=== PATIENT | male | born 1940 | race Caucasian/White ===

== ENCOUNTER 2016-09-13 07:45 | Inpatient (IN) | payer MEDICARE ==
[2016-09-13] VITALS (12 sets, daily range): BP systolic 113–158; BP diastolic 69–97; PULSE 87–150; RESP 18–29; O2SAT 94–100
[~2016-09-13] VITALS: Ht 175.3 cm; Wt 80.0 kg
--- NOTE | 2016-09-13 07:45 | ED.REPORT ---
HPI-Chest Pain 40 and Over Date of Service Sep 13, 2016 ED Provider: Rakesh Torre Patient is a 76 year old male who presents to the ED via EMS complaining of exacerbated chest tightness onset 2 months ago. He reports that his pain is worse with exertion. Associated symptoms include lower extremity swelling and SOB. He denies headache, lightheadedness, or any other symptoms. He denies any recent illness. Patient is a heavy drinker and has not been to a doctor for 30 years. He is not on any medications. Nursing Notes Stated Complaint: CHEST PRESSURE Nursing Notes Reviewed: Yes Allergies: Coded Allergies: No Known Allergies (Unverified , 09/13/16) General Time Seen by MD: 07:45 Chief Complaint Chest pressure Hx Obtained From: Patient, EMS Arrived By: Ambulance Sudden in Onset?: No Onset Occurred: More than a week ago... (2 months) Symptom Duration: Since onset Recent Healthcare: No recent doctor visit Risk Factors )( CAD Risk Stratification No Smoking Risk factors reviewed )( TAD Risk Stratification No Risk factors reviewed )( PE Risk Stratification No Risk factors reviewed Past Medical History Past Medical History Unknown (no recent doctor visits) Past Surgical History Denies Social History Heavy drinker, daily Alcohol Use: 3-5 per day Other Social History: Smokeless tobacco, Ambulatory Status Independent Review of Systems Respiratory: Reports: Shortness of breath Cardiovascular: Reports: Chest pain Musculoskeletal: Reports: Extremity swelling (Bilat legs ) Neurologic: Denies: Headache, Lightheaded Complete sys rev & neg: except as marked. Physical Exam Initial Vital Signs Vital Signs (First) Date Time Temp Pulse Resp B/P Pulse Ox O2 Delivery O2 Flow Rate FiO2 09/13/16 07:54 36.8 150 26 157/97 100 Nasal Cannula 2 Initial VS: Reviewed Head / Eyes: Atraumatic, Normocephalic Neck: Full range of motion Skin: Warm, Dry Neurologic: Alert, Oriented, Nonfocal General/Constitutional: Awake, Alert Appearance / Presentation: Positive: Intoxicated Respiratory / Chest: Atraumatic, Breath sounds NL, Breath sounds = bilat, No respiratory distress Cardiovascular: Heart sounds NL, No murmurs Heart Rate / Rhythm: Positive: Irreg irregular rhythm Lower extremity edema up to buttock area Abdomen: Atraumatic, Soft, Non-tender Interpretation & Diagnostics Lab Results Interpretation Result Diagram: 09/13/16 0839 09/13/16 0839 Test 09/13/16 08:39 09/13/16 08:49 White Blood Count 8.8th/mm3 (3.8-10.1) Red Blood Count 3.82mil/mm3 (4.40-5.80) Hemoglobin 14.7g/dL (13.8-17.2) Hematocrit 41.4% (41.0-50.0) Mean Corpuscular Volume 108.4fL (81-100) Mean Corpuscular Hemoglobin 38.5pg (27.0-35.0) Mean Corpuscular Hemoglobin Concent 35.5% (32.0-37.0) Red Cell Distribution Width 12.6% (12.3-15.4) Platelet Count 91bil/L (150-400) Neutrophils (%) (Auto) 65.1% (40-74) Lymphocytes (%) (Auto) 19.1% (14-46) Monocytes (%) (Auto) 13.6% (4-12) Eosinophils (%) (Auto) 1.4% (0-5) Basophils (%) (Auto) 0.6% (0-3) Prothrombin Time 11.9sec (8.1-12.5) Prothromb Time International Ratio 1.11ratio Activated Partial Thromboplast Time 26.3sec (22.8-33.0) Sodium Level 136mEq/L (134-144) Potassium Level 3.9mEq/L (3.5-5.2) Chloride Level 97mEq/L (97-108) Carbon Dioxide Level 22mmol/L (18-29) Blood Urea Nitrogen 12mg/dL (8-27) Creatinine 0.59mg/dL (0.76-1.27) Estimat Glomerular Filtration Rate 142mL/min (>59) Glucose Level 87mg/dL (60-99) Calcium Level 8.3mg/dL (8.5-10.1) Magnesium Level 1.9mg/dL (1.6-2.6) Total Bilirubin 1.2mg/dL (0.0-1.2) Aspartate Amino Transf (AST/SGOT) 68U/L (0-50) Alanine Aminotransferase (ALT/SGPT) 50U/L (0-44) Alkaline Phosphatase 100U/L (25-160) Troponin T 0.011ug/L (0.0-0.011) Pro-B-Type Natriuretic Peptide 1915pg/mL (0-486) Total Protein 7.0g/dL (6.4-8.4) Albumin 3.8g/dL (3.4-5.0) Thyroid Stimulating Hormone (TSH) 5.980uIU/mL (0.450-4.500) ECG Interpretation ECG Interpretation: RBBB afib with rapid ventricular response rate 131 Time: 07:59 Interpreted by: ED physician X-Ray Chest Interpretation Chest Xray Interpretation: IMPRESSION: Trace left-sided pleural fluid collection patchy opacity left lung base suspicious for pneumonia. Dictated by: Olivia Garcia MD, PhD on 09/13/2016 at 8:29 Approved by: Olivia Garcia MD, PhD on 09/13/2016 at 8:29 View: Portable, 1 view Interpretation / Wet Read by: Interpret - Radiologist Re-Eval/Medical Decision Med Decision/Clinical Course New-onset congestive heart failure with atrial fibrillation and rapid ventricular response, patient will be heparinized, patient received IV Cardizem in the ER. Time of Eval: 08:19 Re-Evaluation/Progress Note: Rechecked patient. Discussed plan for admission. Patient understands and agrees with plan. Consultation : Referral / Consult Name: Tom Hurtado DO Consulted With: Hospitalist Call Returned at: 10:26 Fork Truck Operator: Will see patient, Agrees with eval, Agrees with plan, Accepts admit Note: Discussed patient's case. Agrees to admit Counseled Regarding: Diagnosis, Lab results, Need for admission Discharge & Departure Primary Impression: CHF (congestive heart failure) Additional Impression: Atrial fibrillation with RVR Disposition: ADMITTED TO HOSPITAL Discharge Condition All VS Reviewed: Yes Condition: Stable Crit Care Except Billable Proc Time Spent: 30-74 minutes Services Performed: Patient management by me, Time spent at bedside, Reviewing test results Critical Care Notes: See MDM Scribe Attestation Portions of this note were transcribed by Gilberto Marks. I, Dr. Torre personally performed the history, physical exam and medical decision-making; I reviewed and confirmed the accuracy of the information in the transcribed note. Signed by: Gilberto Marks 09/13/16, Rakesh Lo DO Sep 13, 2016 07:45 GILBERTO MARKS Sep 13, 2016 08:06
[2016-09-13] MEDS ORDERED: Diltiazem 5 mg/mL 5 mL Inj IVPUSH ONE ×2 (07:50→11:25)
--- NOTE | 2016-09-13 08:30 | DRSVH ---
PROCEDURE: X-RAY CHEST ONE VIEW, PORTABLE ([id number]) INDICATIONS: dyspnea, chest pain TECHNIQUE: One view of the chest was acquired. COMPARISON: None. FINDINGS: Surgical changes and devices: None. Lungs and pleura: Trace left-sided pleural fluid collection is noted. Patchy opacity noted left lung base. Mediastinum: Mediastinal contours appear normal. Heart size is is enlarged Bones and chest wall: No suspicious bony lesions. Overlying soft tissues appear unremarkable. IMPRESSION: Trace left-sided pleural fluid collection patchy opacity left lung base suspicious for pn eumonia. Dictated by: Olivia Garcia MD, PhD on 09/13/2016 at 8:29 Approved by: Olivia Garcia MD, PhD on 09/13/2016 at 8:29
[2016-09-13 08:42] LABS: BASOPHILS % (AUTO) 0.6 % (0-3)
[2016-09-13 08:53] LABS: EOSINOPHILS % (AUTO) 1.4 % (0-5); MONOCYTES % (AUTO) 13.6 % (4-12); Mean Corpuscular Hemoglobin 38.5 pg (27.0-35.0); Mean Corpuscular Volume 108.4 fL (81-100); NEUTROPHILS % (AUTO) 65.1 % (40-74); Platelet Count 91 bil/L (150-400)
[2016-09-13 09:06] LABS: INR 1.11 ratio
[2016-09-13 09:11] LABS: TROPONIN T 0.011 ug/L (0.0-0.011)
[2016-09-13 09:33] LABS: Magnesium 1.9 mg/dL (1.6-2.6)
[2016-09-13] MEDS ORDERED: Heparin 25K Unit/500mL 0.45 NS 25,000 UNIT in IV Premix 1 EACH IV ONE (09:50)
[2016-09-13] MEDS ORDERED: Furosemide 10 mg/mL 4 mL Inj IVPUSH ONE (09:50)
[2016-09-13] MEDS ORDERED: Heparin 5,000 Unit/mL Inj IVPUSH ONE (09:50)
[2016-09-13] MEDS: 0.9% Sodium Chloride 1,000 ML IV SCH ×2 (11:04→21:04)
[2016-09-13] MEDS ORDERED: Polyethylene Glycol (PEG) 17 Gm Powder PO PRN (11:05)
[2016-09-13] MEDS ORDERED: Alum-Mag Hydrox-Simeth 30 mL Suspension PO PRN (11:05)
[2016-09-13] MEDS ORDERED: Ondansetron 2 mg/mL 2 mL Inj IVPUSH PRN (11:05)
[2016-09-13 14:53] LABS: APPEARANCE,URINE CLEAR (CLEAR,HAZY); COLOR,URINE STRAW (YELLOW); OCCULT BLOOD,URINE TRACE (NEGATIVE); PH,URINE 5.5 (5.0-8.0); UROBILINOGEN,URINE NORMAL (NORMAL)
[2016-09-13] MEDS ORDERED: Senna-Docusate 8.6-50 mg Tablet PO PRN (15:10)
--- NOTE | 2016-09-13 15:12 | NUR ---
Admit: Admit completed, pt denies taking any home meds.
[2016-09-13] MEDS: Sodium Chloride LOK Flush 10 mL Syringe IVFLUSH SCH (15:30)
[2016-09-13] MEDS ORDERED: MV-M1CAP15 PO (15:48)
[2016-09-13] MEDS ORDERED: IBUP200C PO (15:48)
[2016-09-13] MEDS: Heparin 5,000 Unit/mL Inj SUBQ SCH (15:55)
[2016-09-13] MEDS: LORazepam 0.5 mg Tablet PO PRN (15:55)
[2016-09-13] MEDS ORDERED: Furosemide 10 mg/mL 2 mL Inj IVPUSH ONE (17:00)
--- NOTE | 2016-09-13 18:00 | NUR ---
Admit from ER pt. brought from ER to room 2002 at 1410 this afternoon. VSS; A&Ox3; very sob with any activity; RA sats mid-high 90's. Tele a-fib 80-90's at rest, 130-140's with activity; pt. given scheduled po cardizem. Bilateral lower extremity pitting edema; pt. given scheduled lasix 20 mg iv. Voiding per urinal. C/o 5/10 bilateral lower extremity pain; prn tylenol given with min relief.
--- NOTE | 2016-09-13 18:46 | HP ---
[address] [address] HISTORY AND PHYSICAL PATIENT: DAWN MERCADO : 1940 MR#: [id number] ADMIT: 09/13/2016 JOB ID: [id number] PRIMARY CARE PROVIDER: None. Patient admitted from the ED, inpatient status, team R1. CHIEF COMPLAINT: Edema and shortness of breath. HISTORY OF PRESENT ILLNESS: This is a 76-year-old, white male who has been healthy and has not seen a doctor in 30 years. He comes into the hospital because of shortness of breath, chest discomfort and progressive edema. The patient started with shortness of breath which was mostly exertional about a month ago and this is associated with gradual onset of some peripheral pitting edema. The edema has gotten progressively worse as has the shortness of breath. The patient has had orthopnea in that he has been sleeping in a chair for the last month and has not been lying down in bed, but I cannot really get him to agree to PND per se. Again, he slept in the chair last night. This morning, his was taking care of him and he all of a sudden got very short of breath and indicated he had some chest discomfort. Shortly thereafter, 911 was called and he was brought to the ED. In the emergency department, he had new-onset AFib. The patient has no history of or symptoms of and was given diltiazem with improvement in his rate. He was also given 40 of Lasix which has resulted in a pretty quick, rather substantial diuresis. The patient describes his chest pain as somewhat across his precordial chest area which has resolved at this point in time and he has not had the chest pain up until this point in time. The patient has no history of cardiac problems, and he did not notice any irregularity in his heart rate or palpitations. Therefore, the duration of his AFib is unknown. REVIEW OF SYSTEMS: Complete review of systems obtained from this patient, all pertinent positives are included in HPI above, otherwise complete review of systems negative. PAST MEDICAL HISTORY: 1. Probable T and A. 2. Fractured left arm with a david which was subsequently removed. 3. The patient has a nail in his left lower leg from fractures and orthopedic issues in the past. MEDICATIONS: Ibuprofen p.r.n. ALLERGIES: None. SOCIAL HISTORY: Patient lives his . Does not smoke. He drinks a fair amount of alcohol, admits to least 6+ beers a day. told me he also drinks vodka and some hard liquor at times. He has not noted withdrawals. There is no illicit drug use. FAMILY HISTORY: Father of presumed lung cancer. Mother drank a lot and just more of old age. PHYSICAL EXAMINATION: The patient is resting comfortably. He has already diuresed. He does not appear in acute distress. His heart rate is about 100. Skin is warm and dry. Eyes: PERRLA. EOMs intact. Mouth shows adequate hydration. The patient does have JVD which is pretty prominent at 30 degrees, noticed better on the left. He has some bibasilar crackles in both lung porter. Cardiac exam is without a gallop, irregular, rate of about 100 and possible soft systolic murmur. His abdomen is soft, nonacute, benign. Extremities show 2+ edema which the family says is already coming down. Cranial nerves 2-12 intact. No gross motor or sensory defects noted. DIAGNOSES: 1. Acute atrial fibrillation with rapid ventricular response, present on admission, active. Plan here is start the patient on oral diltiazem 60 q.8 h., monitor on telemetry and increase dose as needed for rate control. Patient will be getting an echo. He will be started on full-dose aspirin, and thyroid function tests will be obtained. Will discuss further with the patient about the possibility of Coumadin therapy, but he is pretty averse to doctors and medicines at this time. 2. Acute presumed congestive heart failure present on admission, active. Patient received one dose of Lasix and will give an additional dose of 20 IV as he has diuresed quite a bit. Will get standing daily weights and echo will be obtained and depending on those results, further diagnostic and therapeutic intervention can be entertained. 3. Macrocytosis present on admission, active. A B12 and folate level will be obtained. Treat if necessary. 4. Alcohol use disorder, present on admission, active. The patient will be given thiamine IV and be started on some IV Ativan as needed. If he shows any evidence of active withdrawal, we can switch him to a formal alcohol withdrawal protocol. 5. Elevated liver function tests, present on admission, active. AST greater than ALT, suspect this is secondary to alcoholic liver disease. Outpatient followup recommended. CODE STATUS: FULL CODE. FULL CODE, however, the patient indicates he does not want to stay on life support for a long period of time.
[2016-09-13] MEDS: Thiamine Inj 100 MG in Dextrose 5% 50 ML IV SCH (23:38)
[2016-09-14] MEDS: Heparin 5,000 Unit/mL Inj SUBQ SCH ×4 (00:30→23:30)
[2016-09-14] MEDS: Sodium Chloride LOK Flush 10 mL Syringe IVFLUSH SCH ×4 (00:56→23:29)
[2016-09-14 02:32] LABS: BASOPHILS % (AUTO) 0.5 % (0-3); EOSINOPHILS % (AUTO) 0.6 % (0-5); MONOCYTES % (AUTO) 10.2 % (4-12); Mean Corpuscular Hemoglobin 38.1 pg (27.0-35.0); Mean Corpuscular Volume 107.1 fL (81-100); NEUTROPHILS % (AUTO) 77.9 % (40-74); Platelet Count 86 bil/L (150-400)
[2016-09-14 03:35] VITALS: BP 147/76; PULSE 89; RESP 20; O2SAT 95
--- NOTE | 2016-09-14 06:19 | NUR ---
HR Pt continued to remain in A-Fib 80s-100s during the shift with PVCs and IVCDs present. Pt did have an episode of 14 beats of V-Fib/Tach at 0500 and pt was asleep and asymptomatic.
[2016-09-14] MEDS: 0.9% Sodium Chloride 1,000 ML IV SCH ×2 (07:04→16:47)
--- NOTE | 2016-09-14 07:21 | DRSVH ---
PROCEDURE: X-RAY CHEST ONE VIEW, PORTABLE ([id number]) INDICATIONS: 76 year-old female with shortness of breath and congestive heart failure. TECHNIQUE: One view of the chest was acquired. COMPARISON: [facility], CR, XR CHEST 1VW (PORTABLE), 09/13/2016, 7:53. FINDINGS: Surgical changes and devices: None. Lungs and pleura: There is persistent small basal left pleural effusion. There is increased retrocard iac airspace opacity. Right lung remains clear. No pneumothorax. Mediastinum: Mediastinal contours appear normal. Heart size is normal given AP technique. There is aortic atherosclerosis. Bones and chest wall: No suspicious bony lesions. Overlying soft tissues appear unremarkable. IMPRESSION: 1. Interval increased retrocardiac atelectasis, aspiration, or pneumonia. 2. Persistent small basal left pleural effusion is of uncertain etiology. Dictated by: Geoff Cochran M.D. on 09/14/2016 at 7:19 Approved by: Geoff Cochran M.D. on 09/14/2016 at 7:19
[2016-09-14 08:00] VITALS: PULSE 107
[2016-09-14] MEDS: Thiamine Inj 100 MG in Dextrose 5% 50 ML IV SCH (09:40)
[2016-09-14 11:14] VITALS: BP 156/78; PULSE 118; RESP 22; O2SAT 95
--- NOTE | 2016-09-14 14:50 | NUR ---
Social Work Note: Initial Assessment Data& Assessment: EMR reviewed. SW met with pt and pt at bedside to discuss discharge planning, SW role explained. Mikhail Servin is a 76 year old male admitted on 09/13/2016 for new onset CHF and AFIB with RVR. Pt has Medicare insurance coverage and pt explained they have an AARP supplement as well (policy number provided to registration). Pt lives in [place] with spouse and is independent at baseline. Pt denies any DME use. Pt denies HH or SNF hx. Pt denies LTC insurance. Pt states he is [facility] with [facility] but does not remember if he is service connected or not. Pt lives in a two story home but does not go to the second story of the home only down to the basement where they have a wood burning furnace. Pt does not drive, pt transports him to appointments. Pt does not have a PCP at this time. SW provided pt with [place] clinic number to establish PCP, pt also explained they are thinking of him getting established at [facility]. Pt also provided with DPOA paperwork. Pt explained that pt has not left the home very much since care home and he prefers to remain in the home. Pt explained this has prevented him from getting established with a PCP in the past or getting DPOA paperwork notarized in the past. Pt confirmed she will be transporting pt home when medically ready. Pt and pt denies any needs at this time. SW to continue to follow if any needs arise. Plan: Anticipated discharge home via POV when medically ready. Pt confirmed she will be transporting pt home when medically ready. Pt and pt denies any needs at this time. SW to continue to follow if any needs arise. UNIQUE Sosa Addendum: 09/14/16 at 1459 by PAO TINEO Amended: Links added.
--- NOTE | 2016-09-14 16:39 | DRSVH ---
[facility] [address] [place] [address] Echocardiogram Report Name: DAWN MERCADO MStudy Date : 09/14/2016 Height: 69 in Hospital Exam Location: [facility] Weight: 174 lb Gender: Male BSA: 1.9 m2 : 1940 Age: 76 yrs BP: 147/76 mmHg Reason For Study: HEART FAILURE Ordering Physician: Performed By: Dominik Aguilar Interpretation Summary 1) Normal left ventricular thickness and size with moderately reduced systolic function (EF 30-35%). Significant beat to beat variability present in regards to EF assessment. 2) Mildly dilated right ventricle with borderline reduced systolic function. 3) Severe biatrial enlargement present. 4) Moderate tricupid regurgitation present. 5) Pulmonary hypertension present, estimated systolic pulmonary pressure of 42 + CVP 6). Moderate bilateral pleural effusions present. 7) Trivial pericardial effusion present. 8) Atrial fibrillation with ventricular rates in the 87-112 range present during the study. 9) No prior Echo available for comnparison. Procedure: A two-dimensional transthoracic echocardiogram with color flow and Doppler was performed. The study quality was technically good. There is no prior echocardiogram noted for this patient. The subcostal views were difficult to obtain and are suboptimal in quality. The patient was in atrial fibrillation with controlled ventricular rate during the exam. The patient had a heart rate of 87-112 beats per minute. Left Ventricle: There is normal left ventricular wall thickness. The left ventricle is normal in size. The ejection fraction is estimated to be 30-35%. Left ventricular systolic function is moderately reduced. There is moderate global hypokinesis of the left ventricle. Right Ventricle: The right ventricle is mildly dilated. Right ventricular systolic function is borderline reduced. Atria: Both atria are severely dilated. The interatrial septum is intact with no evidence for an atrial septal defect. Mitral Valve: There is mild mitral annular calcification. There is trace mitral regurgitation. Aortic Valve: The aortic valve is trileaflet. The aortic valve opens well. There is no aortic valve stenosis. No aortic regurgitation is present. Tricuspid Valve: The tricuspid valve is normal in structure and function. There is moderate tricuspid regurgitation. Right ventricular systolic pressure is estimated to be 42 mmHg plus the clinically estimated CVP which cannot be estimated on this exam. Pulmonic Valve: The pulmonic valve is normal in structure and function. There is trace pulmonic regurgitation. Great Vessels: The aortic root is normal size. The dimensions of the ascending aorta are normal. The pulmonary artery is normal size. The inferior vena cava was not well visualized. Pericardium/ Pleura There is a trivial pericardial effusion noted. There are moderate-sized bilateral pleural effusions noted. MMode/2D Measurements & Calculations LVIDd: 5.7 cmLA dimension: 4.3 cm RA long axis: 6.4 cm Ao root diam: 3.4 cm LVIDs: 4.4 cm Aortic Jxn: 2.6 cm FS: 21.8 % LA A2 area: 29.1 cm RA area: 31.5 cm asc Aorta Diam EPSS: 1.5 cm LA A4 area: 28.3 cm RA vol: 132.3 ml IVSd: 0.76 cmLA length (vol) RA : 67.9 ml/m Ao Arch Diam LVPWd: 1.0 cm RVDd major: 6.0 cm (Proximal trans.) LA vol: 100.4 ml RVDd minor: 4.7 cm LA vol index : 51.6 ml/m2 EDV(MOD-sp2) LV larson. diameter/BSA LV sys. diameter/BSA : 126.8 ml (cm/m^2): 2.9 (cm/m^2): 2.3 Doppler Measurements & Calculations MV E max robert MV E/A: 100.9 TR max robert MV dec time : 88.3 cm/sec Med Peak E' Robert : 323.1 cm/sec : 0.14 sec MV A max robert TR max PG : 0.88 cm/sec E/E' med: 16.7 : 41.8 mmHg Lat Peak E' Robert PA V2 max : 79.7 cm/sec E/E' lat: 9.6 PA mean PG PA Accel Time PA V2 mean : 59.6 cm/sec PA pr(Accel) : 26.6 mmHg Pediatric Measurements & Calculations TR mean P.5 mmHg TR mean robert: 249.2 cm/sec TR VTI: 80.9 cm Reading Physician:04:38 PM
[2016-09-14 16:49] VITALS: BP 135/77; PULSE 95; RESP 20; O2SAT 95
--- NOTE | 2016-09-14 17:49 | PCM.PNMED ---
Subjective Date of Service Sep 14, 2016 Subjective The patient started with shortness of breath which was mostly exertional about a month ago and this is associated with gradual onset of some peripheral pitting edema. The edema has gotten progressively worse as has the shortness of breath. The patient has had orthopnea in that he has been sleeping in a chair for the last month and has not been lying down in bed, but I cannot really get him to agree to PND per se. Again, he slept in the chair last night. This morning, his was taking care of him and he all of a sudden got very short of breath and indicated he had some chest discomfort. Shortly thereafter, 911 was called and he was brought to the ED. In the emergency department, he had new-onset AFib. The patient has no history of or symptoms of and was given diltiazem with improvement in his rate. He was also given 40 of Lasix which has resulted in a pretty quick, rather substantial diuresis. The patient describes his chest pain as somewhat across his precordial chest area which has resolved at this point in time and he has not had the chest pain up until this point in time. The patient has no history of cardiac problems, and he did not notice any irregularity in his heart rate or palpitations. Therefore, the duration of his AFib is unknown. Overnight Events: No significant overnight events. Today Mr. Servin was very short of breath after a trip to the restroom early this morning. Exam Vital Signs Vital Sign - Last Date Time Temp Pulse Resp B/P Pulse Ox O2 Delivery O2 Flow Rate FiO2 09/14/16 16:49 36.6 95 20 135/77 95 Room Air 09/13/16 13:43 2 Intake and Output 09/13/16 09/13/16 09/14/16 Cumulative From/Thru 15:00 23:00 07:00 09/13/16 07:54 - 09/14/16 05:23 Intake Total 200 ml 400 ml 808 ml 1408 ml Output Total 2000 ml 650 ml 1225 ml 3875 ml Balance -1800 ml -250 ml -417 ml -2467 ml Intake Oral 200 ml 400 ml 740 ml 1340 ml IV Total 68 ml 68 ml Output Urine Total 2000 ml 650 ml 1225 ml 3875 ml # Voids 6 6 Exam General: No acute distress, well-developed, well-nourished, appropriately interactive. HEENT: Normocephalic, atraumatic. External ears without defect. Pupils equal, round, and reactive to light and accommodation. Anicteric sclerae, moist conjunctivae, and no lid lag. Oropharynx free of erythema and cobble stoning with moist mucosa. Neck: Supple with full range of motion. No jugular venous distension. No bruits. No lymphadenopathy or thyromegaly. Cardiovascular: Irregularly irregular rate and rhythm with no murmurs, rubs, or gallops appreciated. Pulmonary: Clear to auscultation bilaterally with no crackles, wheezes, or rhonchi. Normal respiratory effort with no use of accessory muscles. Abdomen: Bowel tones present. Soft, nontender, nondistended. No hepatosplenomegaly or masses appreciated. Extremities: No clubbing, cyanosis. Mild pitting edema to the kneecaps. No lymphadenopathy appreciated. Skin: Normal temperature, turgor, and texture; no rash, ulcers, or subcutaneous nodules appreciated. Neurological: Cranial nerves grossly intact. Normal muscle strength, tone, and bulk. Reflexes, coordination, and sensory function within normal limits. No known gait impairment. Psychiatric: Normal mood and affect. Alert and oriented to person, place, and time. IVs and Medications Medications Reviewed: Medications were reviewed in detail Lab and Diagnostics Result Diagram: 09/14/1620909/14/16209 X-Rays, CTs and MRIs X-RAY CHEST ONE VIEW, PORTABLE IMPRESSION: 1. Interval increased retrocardiac atelectasis, aspiration, or pneumonia. 2. Persistent small basal left pleural effusion is of uncertain etiology. Dictated by: Geoff Cochran M.D. on 09/14/2016 at 7:19 Cardiac Echo Impressions Interpretation Summary 1) Normal left ventricular thickness and size with moderately reduced systolic function (EF 30-35%). Significant beat to beat variability present in regards to EF assessment. 2) Mildly dilated right ventricle with borderline reduced systolic function. 3) Severe biatrial enlargement present. 4) Moderate tricupid regurgitation present. 5) Pulmonary hypertension present, estimated systolic pulmonary pressure of 42 + CVP 6). Moderate bilateral pleural effusions present. 7) Trivial pericardial effusion present. 8) Atrial fibrillation with ventricular rates in the 87-112 range present during the study. 9) No prior Echo available for comparison. Assessment & Plan The patient started with shortness of breath which was mostly exertional about a month ago and this is associated with gradual onset of some peripheral pitting edema. The edema has gotten progressively worse as has the shortness of breath. He all of a sudden got very short of breath and indicated he had some chest discomfort. In the emergency department, he had new-onset AFib. The patient has no history of or symptoms of and was given diltiazem with improvement in his rate. He was also given 40 of Lasix which has resulted in a pretty quick, rather substantial diuresis. The patient describes his chest pain as somewhat across his precordial chest area which has resolved at this point in time and he has not had the chest pain up until this point in time. The patient has no history of cardiac problems, and he did not notice any irregularity in his heart rate or palpitations. Therefore, the duration of his AFib is unknown. 1. Acute Atrial fibrillation with rapid ventricular response, present on admission, Active. - HR controlled in the 's. - Diltiazem 60 q.8 h, plan to switch to metoprolol as outpatient. - Telemetry on. - ECHO pending today. - ASA 325. - TSH - 5.98, T4 - 1.03. - Subclinical hypothyroidism. - Coumadin therapy, but he is pretty averse to doctors and medicines at this time. 2. Acute Congestive heart failure, present on admission, Active. - Likely 2nd to atrial fibrillation. - Scheduled Duonebs for shortness of breath. - Furosemide IV Q8 h for 3 doses. - Standing weights daily. - Weights Overnight - 84 kg to 78 kg. - ECHO results per above. 3. Macrocytosis, present on admission, Active. - A B12 and folate level will be obtained. Treat if necessary. 4. Alcohol use disorder, present on admission, Active. - The patient will be given thiamine IV and be started on some IV Ativan as needed. - No signs of withdrawal overnight, with CIWAs of 0. 5. Elevated liver function tests, present on admission, active. - AST greater than ALT, suspect this is secondary to alcoholic liver disease. - Outpatient followup recommended. Acetaminophen for mild pain when necessary. Bowel regimen Senna and MiraLAX scheduled and PRN. Zofran when necessary for nausea and vomiting. SubQ heparin held for now. SCDs in place. High risk Medications: Disposition: likely discharge in 2 days due to CHF. Pain Evaluation: Adequate Pain Control VTE Prophylaxis: Sub-Q Heparin (Unfractionated) VTE Mechanical Devices: Intermittant Pneumatic CD Resuscitation Status: CPR: Attempt Resuscitation Attending Statement The patient was seen and examined together with Dr. Montelongo on 09-14-16 and I agree with the history, exam and plan as outlined in the note above. ALEKSANDER MONTELONGO DO Sep 14, 2016 17:18 Anabelle Lockett MD Sep 15, 2016 15:52
--- NOTE | 2016-09-14 18:32 | NUR ---
Respiration/Edema Pt. gets SOB on exertion to the bathroom as well as getting into bed. Pt. is on RA sating in the high 90's. Pt. has lower extremity edema, pitting. Pt. has high anxiety with new health issues about his heart. Pt. is in bed resting comfortably.
[2016-09-14 19:58] VITALS: BP 136/82; PULSE 96; RESP 25; O2SAT 96
[2016-09-14 23:22] VITALS: BP 143/81; PULSE 94; O2SAT 96
[2016-09-15] VITALS (8 sets, daily range): BP systolic 129–145; BP diastolic 77–85; PULSE 79–98; RESP 16–22; O2SAT 94–98
[2016-09-15] MEDS: 0.9% Sodium Chloride 1,000 ML IV SCH (03:04)
[2016-09-15 03:06] LABS: Hepatitis A Antibody IgM Negative (Negative); Hepatitis B Core Antibody IgM Negative (Negative)
--- NOTE | 2016-09-15 05:26 | NUR ---
burning/tingling in feet pt c/o of burning sensation and tingling in feet, he says it happens at home also, tylenol 975MG PO given x2 with good relief. tele AFIB with IVCD rate 90s
[2016-09-15 05:56] LABS: Mean Corpuscular Hemoglobin 38.4 pg (27.0-35.0); Mean Corpuscular Volume 106.5 fL (81-100)
[2016-09-15] MEDS: Heparin 5,000 Unit/mL Inj SUBQ SCH ×2 (07:54→17:05)
[2016-09-15] MEDS: Sodium Chloride LOK Flush 10 mL Syringe IVFLUSH SCH ×2 (07:56→17:04)
[2016-09-15] MEDS ORDERED: Furosemide 10 mg/mL 2 mL Inj IV SCH ×2 (10:17→10:28)
--- NOTE | 2016-09-15 17:27 | PCM.PHAPRO ---
Progress Date of Service: Sep 15, 2016 Warfarin Management per Pharmacy: Indication: Stroke prophylaxis as patient has atrial fibrillation ([id number]- Vasc = 3) Home Dose: New Start Labs: Hgb/Hct: 14.2/39.4 Plt: 99 INR: 1.11 Additional Anticoagulants/antiplatelets: Heparin 5000 units subQ Q8h, Aspirin 81 mg PO daily Drug Dx Interactions: Liver Dx, thrombocytopenia Drug-Drug Interactions: None Recommendation: Warfarin 4 mg PO x 1 Pharmacy to continue to monitor for signs/symptoms of bleeding. Thank You, Carla Jones, Pharm D. Carla Jones Sep 15, 2016 17:27
--- NOTE | 2016-09-15 17:57 | NUR ---
Cardiac/Behavior/activity Pt has pitting edema to mid thigh. Painful to touch in lower legs. States that yesterday it was hard. States that his extremities feel hot, and he feels crummy from his feet up. Refuses pain medication. Pt is very restless. After meeting with CHF education nurse he got up out of bed and set off edy alarm. RN reoriented him to policy of using call light to ask for help. Pt agreed and stated that he would use call light as needed. As soon as CHF nurse left the room pt got up out of bed and set off edy. When this RN went into the room pt was agitated and was trying to turn off bed alarm. He stated that he was going to get his pistol and shoot the bed alarm. Pt reoriented to policy of using call light.
[2016-09-15 18:31] LABS: INR 1.17 ratio
[2016-09-15] MEDS: LORazepam 0.5 mg Tablet PO PRN (20:15)
--- NOTE | 2016-09-15 20:47 | PCM.PNMED ---
Subjective Date of Service Sep 15, 2016 Subjective The patient started with shortness of breath which was mostly exertional about a month ago and this is associated with gradual onset of some peripheral pitting edema. The edema has gotten progressively worse as has the shortness of breath. The patient has had orthopnea in that he has been sleeping in a chair for the last month and has not been lying down in bed, but I cannot really get him to agree to PND per se. Again, he slept in the chair last night. This morning, his was taking care of him and he all of a sudden got very short of breath and indicated he had some chest discomfort. Shortly thereafter, 911 was called and he was brought to the ED. In the emergency department, he had new-onset AFib. The patient has no history of or symptoms of and was given diltiazem with improvement in his rate. He was also given 40 of Lasix which has resulted in a pretty quick, rather substantial diuresis. The patient describes his chest pain as somewhat across his precordial chest area which has resolved at this point in time and he has not had the chest pain up until this point in time. The patient has no history of cardiac problems, and he did not notice any irregularity in his heart rate or palpitations. Therefore, the duration of his AFib is unknown. Overnight Events: Was very short of breath again overnight. Today Mr. Servin was resting in his chair comfortably with his along side. We discussed options regarding medical management and stroke prevention. He would like to continue medications at home however he expressed that he'd like to avoid intervention from spinning frame cleaner. He denies nausea, vomiting, head ache, shortness of breath, chest pain, abdominal pain, diarrhea, constipation. Exam Vital Signs Vital Sign - Last Date Time Temp Pulse Resp B/P Pulse Ox O2 Delivery O2 Flow Rate FiO2 09/15/16 03:12 36.6 84 22 137/85 94 Room Air 09/13/16 13:43 2 Intake and Output 09/14/16 09/14/16 09/15/16 Cumulative From/Thru 15:00 23:00 07:00 09/13/16 07:54 - 09/15/16 05:58 Intake Total 1081 ml 800 ml 3289 ml Output Total 750 ml 600 ml 5225 ml Balance 331 ml 200 ml -1936 ml Intake Oral 1000 ml 800 ml 3140 ml IV Total 81 ml 149 ml Output Urine Total 750 ml 600 ml 5225 ml # Voids 6 # Bowel Movements 1 1 Exam General: No acute distress, well-developed, well-nourished, appropriately interactive. HEENT: Normocephalic, atraumatic. External ears without defect. Pupils equal, round, and reactive to light and accommodation. Anicteric sclerae, moist conjunctivae, and no lid lag. Oropharynx free of erythema and cobble stoning with moist mucosa. Neck: Supple with full range of motion. No jugular venous distension. No bruits. No lymphadenopathy or thyromegaly. Cardiovascular: Irregularly irregular rate and rhythm with no murmurs, rubs, or gallops appreciated. Pulmonary: Clear to auscultation bilaterally with no crackles, wheezes, or rhonchi. Normal respiratory effort with no use of accessory muscles. Abdomen: Bowel tones present. Soft, nontender, nondistended. No hepatosplenomegaly or masses appreciated. Extremities: No clubbing, cyanosis. Mild pitting edema to the kneecaps. No lymphadenopathy appreciated. Skin: Normal temperature, turgor, and texture; no rash, ulcers, or subcutaneous nodules appreciated. Neurological: Cranial nerves grossly intact. Normal muscle strength, tone, and bulk. Reflexes, coordination, and sensory function within normal limits. No known gait impairment. Psychiatric: Normal mood and affect. Alert and oriented to person, place, and time. IVs and Medications Medications Reviewed: Medications were reviewed in detail Lab and Diagnostics Result Diagram: 09/14/1620909/14/16209 X-Rays, CTs and MRIs X-RAY CHEST ONE VIEW, PORTABLE IMPRESSION: 1. Interval increased retrocardiac atelectasis, aspiration, or pneumonia. 2. Persistent small basal left pleural effusion is of uncertain etiology. Dictated by: Geoff Cochran M.D. on 09/14/2016 at 7:19 Cardiac Echo Impressions Interpretation Summary 1) Normal left ventricular thickness and size with moderately reduced systolic function (EF 30-35%). Significant beat to beat variability present in regards to EF assessment. 2) Mildly dilated right ventricle with borderline reduced systolic function. 3) Severe biatrial enlargement present. 4) Moderate tricupid regurgitation present. 5) Pulmonary hypertension present, estimated systolic pulmonary pressure of 42 + CVP 6). Moderate bilateral pleural effusions present. 7) Trivial pericardial effusion present. 8) Atrial fibrillation with ventricular rates in the 87-112 range present during the study. 9) No prior Echo available for comparison. Assessment & Plan The patient started with shortness of breath which was mostly exertional about a month ago and this is associated with gradual onset of some peripheral pitting edema. The edema has gotten progressively worse as has the shortness of breath. He all of a sudden got very short of breath and indicated he had some chest discomfort. In the emergency department, he had new-onset AFib. The patient has no history of or symptoms of and was given diltiazem with improvement in his rate. He was also given 40 of Lasix which has resulted in a pretty quick, rather substantial diuresis. The patient describes his chest pain as somewhat across his precordial chest area which has resolved at this point in time and he has not had the chest pain up until this point in time. The patient has no history of cardiac problems, and he did not notice any irregularity in his heart rate or palpitations. Therefore, the duration of his AFib is unknown. 1. Acute Atrial fibrillation with rapid ventricular response, present on admission, Active. - HR controlled in the 80's. - TSH - 5.98, T4 - 1.03. - Subclinical hypothyroidism. - Diltiazem 60 q.8 h discontinued. Started Metoprolol tartrate 50mg PO Q8H. - Telemetry on. - ASA 325. - Started Warfarin. 2. Acute Congestive heart failure, present on admission, Active. - Likely 2nd to atrial fibrillation. - Scheduled Duonebs for shortness of breath. - Furosemide IV Q8 h for 3 doses today then switch to Torsemide 20mg PO daily. - Standing weights daily. - Weights Overnight - 84 kg to 78 kg. - ECHO results per above. - Pro BNP pending. - Lisinopril 2.5 mg daily. 3. Macrocytosis, present on admission, Active. - A B12 and folate level will be obtained. Treat if necessary. - Counseled regarding the importance of alcohol cessation. - Will need follow up with Hematology as outpatient. 4. Alcohol use disorder, present on admission, Active. - The patient will be given thiamine IV and be started on some IV Ativan as needed. - No signs of withdrawal as of yet, however this evening patient was becoming more agitated. Will initiate CIWA overnight if necessary. - Will need follow up with forensic social worker tomorrow for ETOH use disorder. 5. Elevated liver function tests, present on admission, active. - Possibly steatohepatitis. - AST greater than ALT, suspect this is secondary to alcoholic liver disease. - Outpatient followup recommended. 6. Urinary retention, present on admission. Active. - Post void residual pending. - Address tomorrow. 7. Left pleural effusion, present on admission. Active. - Ddx: possibly CHF - Imaging per above. - IV lasix - Consider US for possible Tap. Acetaminophen for mild pain when necessary. Bowel regimen Senna and MiraLAX scheduled and PRN. Zofran when necessary for nausea and vomiting. SubQ heparin held for now. SCDs in place. High risk Medications: IV Ativan as needed. PO Coumadin. Disposition: likely discharge in 2 days. Pain Evaluation: Adequate Pain Control VTE Prophylaxis: Sub-Q Heparin (Unfractionated) VTE Mechanical Devices: Intermittant Pneumatic CD Resuscitation Status: CPR: Attempt Resuscitation Attending Statement The patient was seen and examined together with Dr. Montelogno on 09-15-16 and I agree with the history, exam and plan as outlined in the note above. ALEKSANDER MONTELONGO DO Sep 15, 2016 06:02 Anabelle Lockett MD Sep 16, 2016 08:20
[2016-09-15] MEDS ORDERED: Haloperidol 5 mg/mL Inj IVPUSH ONE (23:45)
--- NOTE | 2016-09-15 23:49 | NUR ---
transfer pt transferred to room 1019 report given to Elo Magdaleno RN, pt becoming very confused, impulsive, not following directions, called she stated that pt drinks sips of beer and liquor all day, no water, she is unable to come in at night (they have wood heat and she is worried her pipes will freeze and she hasn't driven at night for many years) called night resident and he was going to put in for haldol, pt on tele AFIB rate 80-90s, on RA, unsteady on feet, sitter with pt. all belongins, chart and medications taken with pt.
--- NOTE | 2016-09-15 23:58 | NUR ---
Received from [facility] Pt received from 2021. Oriented x3 and forgetful at times. He denies any pain at this time. Sob with exertion.
[2016-09-16] VITALS (9 sets, daily range): BP systolic 103–150; BP diastolic 60–83; PULSE 79–111; RESP 18–21; O2SAT 96–98
[2016-09-16] MEDS: Sodium Chloride LOK Flush 10 mL Syringe IVFLUSH SCH ×3 (00:32→16:33)
[2016-09-16] MEDS: Heparin 5,000 Unit/mL Inj SUBQ SCH ×3 (00:33→16:33)
[2016-09-16 06:06] LABS: Mean Corpuscular Hemoglobin 38.3 pg (27.0-35.0); Mean Corpuscular Volume 105.3 fL (81-100)
--- NOTE | 2016-09-16 06:38 | NUR ---
Mentation Pt oriented x3 but forgetful at times. He gets impulsive and restless at times with unsteady gait noted. He is cooperative with care with redirection and education. Pt c/o mostly of not sleeping well for the past 3 days. Haldol 2 mg IV once given last night. Pt was sleeping most of the night after dose of Haldol. Pt waking up to use bsc/urinal. Sitter at bedside. Bed alarm on for safety. Telemetry Afib 80s.
[2016-09-16 06:48] LABS: INR 1.22 ratio
--- NOTE | 2016-09-16 16:00 | NUR ---
Social Work Continued Discharge Planning D/A: EMR reviewed. Pt is a 76 year old male admitted on 09/13/2016 for new onset CHF and AFIB with RVR. Pt lives in [place] with spouse and is independent at baseline. Pt denies any DME use. Pt does not drive, pt transports him to appointments. Pt working on establishing care at [facility] with Dr. Oropeza. Pt provided with DPOA paperwork at time of initial assessment. PT=HH and FWW. Pt and PT therapist report is going to obtain a walker for Pt prior to discharge. SW discussed HH recommendation. Pt open to HH service, SW provided Choice to Pt. No preference. SW provided Referral to [facility] for RN/PT services for Pt. Access Given. F2F in folder, needs signature. SW will need to provide Pt with Senior Resource Guide as requesting caregiving resources. Plan: Anticipated discharge home via POV when medically ready with Home Health RN/PT with in 48 hours of discharge. F2F to be signed by provider. Pt will be transporting pt home when medically ready. SW following. UNIQUE Sanchez Addendum: 09/16/16 at 1610 by STAN SOSA SS Pt not yet established with PCP. Pt working on establishing with Dr. Oropeza at [facility]. [facility] to follow and begin service once PCP established. UNIQUE Sanchez
--- NOTE | 2016-09-16 16:41 | PCM.PNMED ---
Subjective Date of Service Sep 16, 2016 Subjective denies any new issues/complaints. Exam Vital Signs Vital Sign - Last Date Time Temp Pulse Resp B/P Pulse Ox O2 Delivery O2 Flow Rate FiO2 09/16/16 14:01 36.4 111 20 111/78 98 Room Air 09/13/16 13:43 2 Intake and Output 09/15/16 09/15/16 09/16/16 Cumulative From/Thru 15:00 23:00 07:00 09/13/16 07:54 - 09/16/16 06:30 Intake Total 960 ml 1000 ml 5249 ml Output Total 1225 ml 725 ml 7175 ml Balance -265 ml 275 ml -1926 ml Intake Oral 960 ml 1000 ml 5100 ml IV Total 0 ml 149 ml Output Urine Total 1225 ml 725 ml 7175 ml # Voids 2 8 # Bowel Movements 1 2 General: Alert, Cooperative, No Acute Distress Eyes: Scleral Anicteric Mouth: Mucous Membr Moist/Godwin Neck: Supple Chest & Lungs: Chest Wall Normal, Clear to auscultation & percussion Cardiovascular: Regular Rate/Rhythm Abdomen: Non-tender, Non-distended, Normoactive bowel tones Extremities: Other (trace bilat LE edema) Neurological: Grossly Neurologically Intact, Normal Speech IVs and Medications Medications Reviewed: Medications were reviewed in detail Lab and Diagnostics Result Diagram: 09/16/16 0538 09/16/16 0538 X-Rays, CTs and MRIs X-RAY CHEST ONE VIEW, PORTABLE IMPRESSION: 1. Interval increased retrocardiac atelectasis, aspiration, or pneumonia. 2. Persistent small basal left pleural effusion is of uncertain etiology. Dictated by: Geoff Cochran M.D. on 09/14/2016 at 7:19 Cardiac Echo Impressions Interpretation Summary 1) Normal left ventricular thickness and size with moderately reduced systolic function (EF 30-35%). Significant beat to beat variability present in regards to EF assessment. 2) Mildly dilated right ventricle with borderline reduced systolic function. 3) Severe biatrial enlargement present. 4) Moderate tricupid regurgitation present. 5) Pulmonary hypertension present, estimated systolic pulmonary pressure of 42 + CVP 6). Moderate bilateral pleural effusions present. 7) Trivial pericardial effusion present. 8) Atrial fibrillation with ventricular rates in the 87-112 range present during the study. 9) No prior Echo available for comparison. Assessment & Plan 76-year-old, white male who has been healthy and has not seen a doctor in 30 years. He comes into the hospital because of shortness of breath, chest discomfort and progressive edema 1. Acute Congestive heart failure, present on admission, ongoing - Echo showing EF 30-35% - unclear exact etiology but possibly due to history of EtOH and possible underlying A-fib - f/u daily I/O - c/w current meds - patient says will not agree to any invasive cardiac workup but is open to medical management by cardiology - cardiology consulted. will f/u w/ further recs 2. Acute Atrial fibrillation with rapid ventricular response, present on admission, ongoing - HR better controlled - TSH - 5.98, T4 - 1.03. - Subclinical hypothyroidism. - Diltiazem 60 q.8 h discontinued earlier. - c/w Metoprolol tartrate 50mg PO Q8H. - Telemetry on. - ASA 325. - Started Warfarin by previous team but questionable if this is a safe medication for this patient who reportedly is quite active and somewhat prone to falls and accidents - f/u daily INR while on Coumadin 3. Macrocytosis, present on admission, Active. - B12 and folate level wnl - Will need follow up with Hematology as outpatient. 4. Alcohol use disorder, present on admission, Active. - Given Thiamine IV and started on some IV Ativan as needed. - No signs of withdrawal as of yet, - CIWA overnight if necessary. 5. Elevated liver function tests, present on admission, active. - Possibly steatohepatitis. - AST greater than ALT, suspect this is secondary to alcoholic liver disease. - Outpatient followup recommended. 6. Urinary retention, present on admission. Active. - Post void residual pending. 7. Left pleural effusion, present on admission. Active. - Ddx: possibly CHF Dispo: 1-2 days VTE Prophylaxis: Sub-Q Heparin (Unfractionated) VTE Mechanical Devices: Intermittant Pneumatic CD Resuscitation Status: CPR: Attempt Resuscitation Time spent 35 min Adilson Barnes Sep 16, 2016 16:41
[2016-09-16] MEDS: LORazepam 0.5 mg Tablet PO PRN (21:06)
[2016-09-17] VITALS (13 sets, daily range): BP systolic 104–133; BP diastolic 71–88; PULSE 79–121; RESP 15–18; O2SAT 95–98
[2016-09-17] MEDS: Sodium Chloride LOK Flush 10 mL Syringe IVFLUSH SCH ×4 (00:20→20:15)
[2016-09-17] MEDS: Heparin 5,000 Unit/mL Inj SUBQ SCH ×3 (00:20→16:25)
[2016-09-17] MEDS: LORazepam 0.5 mg Tablet PO PRN ×4 (00:58→20:15)
--- NOTE | 2016-09-17 05:41 | NUR ---
Telemetry Pt denies any chest pain/discomfort. Mild dsypnea especially with exertion. Alert and oriented x3. Confuse at times. Impulsive and gets restless at times. Bed alarm on and sitter at bedside.
[2016-09-17 07:08] LABS: INR 1.21 ratio
--- NOTE | 2016-09-17 11:32 | NUR ---
Cardiac/resp As of 08:30, HR has not been below 100 since 0530 am. low 100s-120. Pt denies chest pain, palpitations. Scheduled metoprolol given, aware. RA, SOB noted with activity, although pt denies SOB.
--- NOTE | 2016-09-17 12:06 | PCM.PHAPRO ---
Progress Warfarin Management per Pharmacy: Indication: Stroke prophylaxis as patient has atrial fibrillation ([id number]- Vasc = 3) Home Dose: New Start Lab Date Result Dose INR 09/15/16 1.11 INR 09/16/16 1.22 4 MG INR 09/5016 1.21 Additional Anticoagulants/antiplatelets: Heparin 5000 units subQ Q8h, Aspirin 81 mg PO daily Drug Dx Interactions: Liver Dx, thrombocytopenia Drug-Drug Interactions: None Note: - Dose ordered on 09/15 was actually scheduled for 09/16, so pt never received a dose on 09/15 - Pt refused last night's dose (09/16) Plan: - Since pt has been here he has not successfully received a warfarin dose - Expect INR to continue to decrease - Will give pt one dose of warfarin 5mg PO tonight - Pharmacy to continue to monitor for INR/CBC/signs/symptoms of bleeding. Jessica Lopez PharmD Sep 17, 2016 12:05
--- NOTE | 2016-09-17 16:10 | NUR ---
Coumadin Patient and express concerns about taking Coumadin. Pt refuses the medication. He is taking heparin and aspirin. MD is aware and discussed this with pt and .
--- NOTE | 2016-09-17 17:44 | PCM.PNMED ---
Subjective Date of Service Sep 17, 2016 Subjective denies any new issues/complaints. Exam Vital Signs Vital Sign - Last Date Time Temp Pulse Resp B/P Pulse Ox O2 Delivery O2 Flow Rate FiO2 09/17/16 16:22 36.3 99 18 113/73 98 Room Air 09/13/16 13:43 2 Intake and Output 09/16/16 09/16/16 09/17/16 Cumulative From/Thru 15:00 23:00 07:00 09/13/16 07:54 - 09/17/16 06:07 Intake Total 1000 ml 500 ml 6749 ml Output Total 300 ml 475 ml 7950 ml Balance 700 ml 25 ml -1201 ml Intake Oral 1000 ml 500 ml 6600 ml IV Total 149 ml Output Urine Total 300 ml 475 ml 7950 ml # Voids 3 6 17 # Bowel Movements 0 3 5 Exam General: Alert, Cooperative, No Acute Distress Eyes: Scleral Anicteric Mouth: Mucous Membr Moist/[place] Neck: Supple Chest & Lungs: Chest Wall Normal, Clear to auscultation & percussion Cardiovascular: Regular Rate/Rhythm Abdomen: Non-tender, Non-distended, Normoactive bowel tones Extremities: 2+ pitting edema in LE bilat Neurological: Grossly Neurologically Intact, Normal Speech IVs and Medications Medications Reviewed: Medications were reviewed in detail Lab and Diagnostics Result Diagram: 09/16/16 0538 09/17/16 0635 X-Rays, CTs and MRIs X-RAY CHEST ONE VIEW, PORTABLE IMPRESSION: 1. Interval increased retrocardiac atelectasis, aspiration, or pneumonia. 2. Persistent small basal left pleural effusion is of uncertain etiology. Dictated by: Geoff Cochran M.D. on 09/14/2016 at 7:19 Cardiac Echo Impressions Interpretation Summary 1) Normal left ventricular thickness and size with moderately reduced systolic function (EF 30-35%). Significant beat to beat variability present in regards to EF assessment. 2) Mildly dilated right ventricle with borderline reduced systolic function. 3) Severe biatrial enlargement present. 4) Moderate tricupid regurgitation present. 5) Pulmonary hypertension present, estimated systolic pulmonary pressure of 42 + CVP 6). Moderate bilateral pleural effusions present. 7) Trivial pericardial effusion present. 8) Atrial fibrillation with ventricular rates in the 87-112 range present during the study. 9) No prior Echo available for comparison. Assessment & Plan 76-year-old, white male who has been healthy and has not seen a doctor in 30 years. He comes into the hospital because of shortness of breath, chest discomfort and progressive edema 1. Acute systolic Congestive heart failure, present on admission, ongoing - Echo showing EF 30-35% - unclear exact etiology but possibly due to history of EtOH and possible underlying A-fib - f/u daily I/O - c/w current meds - patient says will not agree to any invasive cardiac workup but is open to medical management by cardiology - Dr. Pichardo from cardiology consulted. will f/u w/ further recs 2. Acute Atrial fibrillation with rapid ventricular response, present on admission, ongoing - HR better controlled - TSH - 5.98, T4 - 1.03. - Subclinical hypothyroidism. - Diltiazem 60 q.8 h discontinued earlier. - c/w Metoprolol tartrate 50mg PO Q8H. - ASA 325. - Started Warfarin by previous team but questionable if this is a safe medication for this patient who reportedly is quite active and somewhat prone to falls and accidents. patient himself is refusing further Coumadin to concern about possible bleeding. 3. Macrocytosis, present on admission, Active. - B12 and folate level wnl - Will need follow up with Hematology as outpatient. 4. Possible alcohol abuse, present on admission. - Given Thiamine IV and started on some IV Ativan as needed. - No signs of withdrawal as of yet, - CIWA overnight if necessary. 5. Mildly elevated transaminases, present on admission - Possibly steatohepatitis. - AST greater than ALT, suspect this is secondary to alcoholic liver disease. - Outpatient followup recommended. 6. Urinary retention, present on admission. Active. 7. Left pleural effusion, present on admission. Active. - Ddx: possibly CHF 8. Acute hyponatremia. not POA - ? if secondary to diuresis - f/u BMP closely Dispo: 1-2 days pending further diuresis and cardiology recs to optimize medical management VTE Prophylaxis: Sub-Q Heparin (Unfractionated) VTE Mechanical Devices: Intermittant Pneumatic CD Resuscitation Status: CPR: Attempt Resuscitation Time spent 35 min Adilson Barnes Sep 17, 2016 17:44
[2016-09-17] MEDS ORDERED: Furosemide 10 mg/mL 10 mL Inj IVPUSH SCH (18:15)
--- NOTE | 2016-09-17 18:55 | CONS ---
[address] [address] CONSULTATION REPORT PATIENT: DAWN MERCADO : 1940 MR#: [id number] ADMIT: 09/13/2016 JOB ID: [id number] DATE OF SERVICE: The patient date of service September 17, 2016. CHIEF COMPLAINT: Shortness of breath. HISTORY OF PRESENT ILLNESS: The patient is a 76-year-old man who has newly diagnosed atrial fibrillation, congestive heart failure. He has alcoholism. His EF is 30%-35%. Cardiology is consulted to assist with management. Of note, when the patient was first admitted on September 13 he declined cardiology assessment, declined invasive therapy, and he was going to be treated medically. He declined oral anticoagulation and he declined consideration of invasive workup and he declined cardioversion. He also was detoxed with CIWA and now we had a very nice conversation about his prognosis, but he definitely has a lot of specific wishes about how his cardiac condition should be managed. PAST MEDICAL HISTORY: 1. Cardiomyopathy, newly diagnosed. EF 30%-35%. Etiology is unknown. Patient declines cath. 2. AFIB duration unknown. Patient declines shock. Patient declines oral anticoagulation for stroke prevention. 3. Alcohol dependence. Patient is reluctant to quantify his alcohol intake but says "probably too much." 4. Trauma. He had a left arm fracture and some orthopedic issues in the past. SOCIAL HISTORY: He lives his . He does not smoke. He drinks, but will not quantify. Denies illicit drug use. FAMILY HISTORY: Says his father from lung cancer and heart attack and a motor vehicle accident. He says the rest of his family from "consumption." REVIEW OF SYSTEMS: BRAGG; otherwise 10 point ROS is negative. ALLERGIES: None. MEDICATIONS: Current medications: 1. Aspirin 325 mg daily. 2. Torsemide 20 mg daily. 3. Metoprolol tartrate 50 mg by mouth every 8 hours. 4. Lisinopril 2.5 mg daily. 5. Subcu heparin. 6. Famotidine. 7. Warfarin (patient declines). PHYSICAL EXAMINATION: Vital signs: Temperature 37.2, blood pressure 104/81 up to 133/88, pulse 79 up to 121 beats per minute. He is satting 95% to 98% on room air. I's and O's: He is actually in more than out by 975 mL. He has not really diuresed very well at all during this hospitalization. He says his dry weight is 160 pounds and his weight currently is 177 pounds. Chronically ill-appearing man, somewhat tachypneic. Eyes: No scleral icterus. Head: Normocephalic, atraumatic, with male pattern baldness. Neck: Supple. No lymphadenopathy. No carotid bruits. He has dilated jugular veins at about 15 cm of blood. Heart: Irregularly irregular. Normal S1, no murmurs. Lungs: With crackles at the bases bilaterally. Abdomen: Soft, positive bowel sounds. Extremities: Show severe edema bilaterally up to his knees. LABORATORIES: Reviewed. Troponin was minimally elevated at 0.012. Creatinine is 0.7, sodium 128. Hematocrit 36%, MCV 105, platelet count 109. INR 1.2. AST 52, ALT 35 currently. Albumin is 2.8. TSH and free T4 are normal. ASSESSMENT: This is a 76-year-old man with what appears to be alcohol dependence, new onset atrial fibrillation, and cardiomyopathy. He declines invasive workup. He declines oral anticoagulation. After some consideration he says he is willing to take medical management. PLAN: 1. Continue aspirin 325 mg daily for stroke prevention. The patient declines warfarin. We had a thorough conversation about risks, benefits, and alternatives of oral anticoagulation and he declined. 2. Cardiomyopathy. He is not ready to be discharged. He is in acute decompensated heart failure. He is 17 pounds above his dry weight. He needs to be aggressively diuresed with Lasix. I believe that is why he is hyponatremic. Recommend Lasix 80 mg IV with goal out more than in by a liter, and he may actually need inotropic support depending on how he does. 3. Continue metoprolol tartrate and lisinopril. 4. In the long term care social worker he may benefit from initiation of spironolactone if he agrees. Thank you for the opportunity to evaluate him. [facility] HOSPITALAnabelle
[2016-09-18] VITALS (11 sets, daily range): BP systolic 102–137; BP diastolic 63–87; PULSE 77–101; RESP 18–24; O2SAT 94–97
[2016-09-18] MEDS: LORazepam 0.5 mg Tablet PO PRN (00:18)
[2016-09-18] MEDS: Heparin 5,000 Unit/mL Inj SUBQ SCH ×4 (00:18→23:51)
[2016-09-18] MEDS ORDERED: Haloperidol 5 mg/mL Inj IM ONE (02:40)
[2016-09-18] MEDS ORDERED: Haloperidol 5 mg/mL Inj IV ONE (03:00)
--- NOTE | 2016-09-18 03:25 | NUR ---
Restless/Anxious Pt oriented x3 but confuse/forgetful at times. Pt noted to be more restless and anxious this am. He was getting frustrated about not getting sleep and voiding often. Po Ativan 0.5 mg po was given several times with little effectiveness noted. Patient c/o not sleeping at all during the day and the other night as well. made aware. Haldol 2 mg IV given as ordered. Sitter at bedside. Will continue to monitor. Addendum: 09/18/16 at 0658 by HOLGER REAVES RN Pt had about 2025 cc urine output. Mild dyspnea with exertion. Addendum: 09/18/16 at 0701 by HOLGER REAVES RN Pt c/o and noted to have problem with voiding. He has some difficulty to start flow and voids small amount at times. PVR noted 123 ml.
[2016-09-18 06:58] LABS: INR 1.23 ratio
[2016-09-18 07:45] LABS: Magnesium 1.2 mg/dL (1.6-2.6)
[2016-09-18] MEDS ORDERED: Potassium Chloride 20 mEq SR Tablet PO ONE ×2 (07:50)
[2016-09-18] MEDS ORDERED: Magnesium Sulf 4 Gm/100 mL H2O 4 GM in IV Premix 1 EACH IV ONE (07:50)
[2016-09-18] MEDS ORDERED: Furosemide 10 mg/mL 4 mL Inj IVPUSH SCH (08:30)
[2016-09-18] MEDS ORDERED: Furosemide 10 mg/mL 10 mL Inj IVPUSH SCH (08:30)
[2016-09-18] MEDS ORDERED: 0.9% Sodium Chloride 250 ML ONE (08:39)
[2016-09-18] MEDS: Sodium Chloride LOK Flush 10 mL Syringe IVFLUSH SCH ×3 (09:18→23:51)
--- NOTE | 2016-09-18 12:43 | PROG NOTE ---
[address] [address] PROGRESS NOTE PATIENT: DAWN MERCADO : 1940 MR#: [id number] ADMIT: 09/13/2016 JOB ID: [id number] DATE: 09/18/2016 SUBJECTIVE: He says he feels much better. His breathing is better. His leg edema is better. Today his is present at the bedside and she confirms the impression that he is improving. OBJECTIVE: Vital signs: Temperature 36.7, blood pressure 125/78 up to 137/87, pulse 77 up to 86 beats per minute. He is satting 96% to 97% on room air. I's and O's: He is out more than in already today by 1.1 L. His weight is down today on the standing scale 3.1 kg. Well-nourished man, no apparent distress. Eyes: No scleral icterus. Heart: Irregularly irregular. No murmurs. Lungs: Clear today. Abdomen: Soft, positive bowel sounds. Extremities: Still with moderate edema bilaterally. CURRENT MEDICATIONS: 1. Aspirin 325 mg daily. 2. Lisinopril 2.5 mg daily. 3. Metoprolol tartrate 50 mg by mouth every 8 hours. 4. Lasix 40 mg IV daily. LABORATORY AND RADIOLOGY REVIEW: Sodium is 131. Potassium 3.1, has been supplemented by primary team. Magnesium 1.2, has been supplemented by primary team. Albumin 2.9, INR 1.2. Hematocrit 36 on the 4th and has not been checked since. ASSESSMENT AND PLAN: This is a delightful 76-year-old man with acute decompensated heart failure. He is still about 15 pounds above his dry weight. I recommend continued IV diuresis until he is dry and then switch to p.o. I told him that the earliest I see him leaving would be Wednesday. Today I will increase his lisinopril from 2.5 mg daily to 5 mg daily. Thank you for the opportunity to evaluate him.
--- NOTE | 2016-09-18 16:44 | PCM.PNMED ---
Subjective Date of Service Sep 18, 2016 Subjective 2.6liters UOP after 80mg iv lasix so switched to 40iv today pt felt much better, denied orhopnea/pnd, reported agitation, required haldol but remained AAOx3, calm in the morning no GIB, tolerating aspirin lisinopril increased to 5mg per Exam Vital Signs Vital Sign - Last Date Time Temp Pulse Resp B/P Pulse Ox O2 Delivery O2 Flow Rate FiO2 09/18/16 13:40 36.1 87 19 102/63 97 Room Air 09/13/16 13:43 2 Intake and Output 09/17/16 09/17/16 09/18/16 Cumulative From/Thru 15:00 23:00 07:00 09/13/16 07:54 - 09/18/16 05:29 Intake Total 900 ml 7649 ml Output Total 2025 ml 9975 ml Balance -1125 ml -2326 ml Intake Oral 900 ml 7500 ml IV Total 149 ml Output Urine Total 2025 ml 9975 ml # Voids 1 18 # Bowel Movements 0 5 Exam NAD, comfortably laying down on the bed no JVD, MMM, no LAD RRR, nl s1, s2 no mrg bilateral crackles at bases S,ND,NT,normoactive BS+ warm, 1+pitting edema, pulses 2/2 IVs and Medications Medications Reviewed: Medications were reviewed in detail Lab and Diagnostics Result Diagram: 09/16/16 0538 09/18/16 0603 X-Rays, CTs and MRIs X-RAY CHEST ONE VIEW, PORTABLE IMPRESSION: 1. Interval increased retrocardiac atelectasis, aspiration, or pneumonia. 2. Persistent small basal left pleural effusion is of uncertain etiology. Dictated by: Geoff Cochran M.D. on 09/14/2016 at 7:19 Cardiac Echo Impressions Interpretation Summary 1) Normal left ventricular thickness and size with moderately reduced systolic function (EF 30-35%). Significant beat to beat variability present in regards to EF assessment. 2) Mildly dilated right ventricle with borderline reduced systolic function. 3) Severe biatrial enlargement present. 4) Moderate tricupid regurgitation present. 5) Pulmonary hypertension present, estimated systolic pulmonary pressure of 42 + CVP 6). Moderate bilateral pleural effusions present. 7) Trivial pericardial effusion present. 8) Atrial fibrillation with ventricular rates in the 87-112 range present during the study. 9) No prior Echo available for comparison. Assessment & Plan 76-year-old, white male who has been healthy and has not seen a doctor in 30 years. He comes into the hospital because of shortness of breath, chest discomfort and progressive edema acute, active 1. Acute systolic Congestive heart failure, present on admission, ongoing, Echo showing EF 30-35%, unclear exact etiology but possibly due to history of EtOH and possible underlying A-fib, refuse invasive w/u - f/u daily I/O, continue lasix 40mg iv qd, follow CMP, replete K, Mg -follow up with Dr. Pichardo in the clinic upon d/c 2. Acute Atrial fibrillation with rapid ventricular response, present on admission, HR better controlled, SH - 5.98, T4 - 1.03. - Subclinical hypothyroidism, Diltiazem 60 q.8 h discontinued earlier. h/h stable on aspirin. - c/w Metoprolol tartrate 50mg PO Q8H. - ASA 325. - Started Warfarin by previous team but questionable if this is a safe medication for this patient who reportedly is quite active and somewhat prone to falls and accidents. patient himself is refusing further Coumadin to concern about possible bleeding. 3. Macrocytosis, present on admission, Active. - B12 and folate level wnl - Will need follow up with Hematology as outpatient. 4. Possible alcohol abuse, present on admission. - Given Thiamine IV and started on some IV Ativan as needed. - No signs of withdrawal as of yet, - CIWA overnight if necessary. 5. Mildly elevated transaminases, present on admission - Possibly steatohepatitis. - AST greater than ALT, suspect this is secondary to alcoholic liver disease. - Outpatient followup recommended. 6. Urinary retention, present on admission. Active. 7. Left pleural effusion, present on admission. Active. - Ddx: possibly CHF 8. Acute hyponatremia.hypervolemic due to CHF, improved with diuresis, Dispo: likely on next wednesday after finishing diuresis course, home with dvt ppx: HSQ Full code diet: heart healthy VTE Prophylaxis: Sub-Q Heparin (Unfractionated) VTE Mechanical Devices: Intermittant Pneumatic CD Resuscitation Status: CPR: Attempt Resuscitation Time spent 35min Everett Cota MD Sep 18, 2016 16:44
[2016-09-18 16:58] LABS: BASOPHILS % (AUTO) 0.5 % (0-3); MONOCYTES % (AUTO) 19.1 % (4-12); Mean Corpuscular Hemoglobin 37.8 pg (27.0-35.0); Mean Corpuscular Volume 103.7 fL (81-100); NEUTROPHILS % (AUTO) 62.6 % (40-74); Platelet Count 112 bil/L (150-400)
[2016-09-18 17:27] LABS: Phosphorus 3.7 mg/dL (2.5-4.9)
--- NOTE | 2016-09-18 18:39 | NUR ---
Room change Moved from room 1019 to room 1015 per charge nurse. Patient's , Katty, was phoned and informed of the change. All belongings moved with patient.
[2016-09-18] MEDS ORDERED: Potassium Chloride 20 mEq/15 mL 15mL Oral Soln PO ONE (19:10)
[2016-09-18] MEDS ORDERED: Potassium Chloride Inj 20 MEQ in Dextrose 5% 250 ML IV ONE (19:10)
[2016-09-18] MEDS: Albuterol 2.5 mg/3 mL Inhalation Solution NEB PRN (23:38)
[2016-09-19] MEDS: LORazepam 0.5 mg Tablet PO PRN ×3 (01:38→21:02)
[2016-09-19 03:31] VITALS: BP 116/82; PULSE 87; RESP 22; O2SAT 96
[2016-09-19 05:51] VITALS: PULSE 85
[2016-09-19 06:22] LABS: BASOPHILS % (AUTO) 0.5 % (0-3); EOSINOPHILS % (AUTO) 0.9 % (0-5); MONOCYTES % (AUTO) 21.4 % (4-12); Mean Corpuscular Volume 104.4 fL (81-100); NEUTROPHILS % (AUTO) 57.6 % (40-74); Platelet Count 108 bil/L (150-400)
--- NOTE | 2016-09-19 06:39 | NUR ---
Requesting AMA At 0600 patient requesting to go AMA. Removed Tele and started to get dressed. Through education and encouragement patient agreeable to stay and offered something for anxiety to help him relax until the doctor sees him this morning. Patient agreeable to stay until MD evaluation this am but still insists that he is going home today.
[2016-09-19 06:59] LABS: Phosphorus 3.5 mg/dL (2.5-4.9)
[2016-09-19] MEDS: Heparin 5,000 Unit/mL Inj SUBQ SCH (08:17)
[2016-09-19] MEDS: Sodium Chloride LOK Flush 10 mL Syringe IVFLUSH SCH ×3 (08:18→22:53)
[2016-09-19] MEDS ORDERED: Furosemide 10 mg/mL 4 mL Inj IVPUSH SCH (08:40)
[2016-09-19 08:57] VITALS: BP 122/86; PULSE 107; RESP 16; O2SAT 100
[2016-09-19 09:50] VITALS: PULSE 75
--- NOTE | 2016-09-19 11:51 | PCM.PNMED ---
Subjective Date of Service Sep 19, 2016 Subjective pt wanted to AMA but agrees to stay bother by frequent blood draws, heparin injection, couldn't sleep denied sob/pnd/chest pain Exam Vital Signs Vital Sign - Last Date Time Temp Pulse Resp B/P Pulse Ox O2 Delivery O2 Flow Rate FiO2 09/19/16 09:50 75 09/19/16 08:57 36.7 16 122/86 100 Room Air 09/13/16 13:43 2 Intake and Output 09/18/16 09/18/16 09/19/16 Cumulative From/Thru 15:00 23:00 07:00 09/13/16 07:54 - 09/19/16 05:13 Intake Total 120 ml 1160 ml 1300 ml 03953 ml Output Total 1275 ml 475 ml 49942 ml Balance 120 ml -115 ml 825 ml -1496 ml Intake Oral 1160 ml 1100 ml 9760 ml IV Total 120 ml 200 ml 469 ml Output Urine Total 1275 ml 475 ml 24292 ml # Voids 4 2 24 # Bowel Movements 2 2 9 Exam NAD, comfortably laying down on the bed no JVD, MMM, no LAD RRR, nl s1, s2 no mrg bilateral crackles at bases S,ND,NT,normoactive BS+ warm, 1+pitting edema, pulses 2/2 IVs and Medications Medications Reviewed: Medications were reviewed in detail Lab and Diagnostics Result Diagram: 09/19/16 0536 09/19/16 0536 X-Rays, CTs and MRIs X-RAY CHEST ONE VIEW, PORTABLE IMPRESSION: 1. Interval increased retrocardiac atelectasis, aspiration, or pneumonia. 2. Persistent small basal left pleural effusion is of uncertain etiology. Dictated by: Geoff Cochran M.D. on 09/14/2016 at 7:19 Cardiac Echo Impressions Interpretation Summary 1) Normal left ventricular thickness and size with moderately reduced systolic function (EF 30-35%). Significant beat to beat variability present in regards to EF assessment. 2) Mildly dilated right ventricle with borderline reduced systolic function. 3) Severe biatrial enlargement present. 4) Moderate tricupid regurgitation present. 5) Pulmonary hypertension present, estimated systolic pulmonary pressure of 42 + CVP 6). Moderate bilateral pleural effusions present. 7) Trivial pericardial effusion present. 8) Atrial fibrillation with ventricular rates in the 87-112 range present during the study. 9) No prior Echo available for comparison. Assessment & Plan 76-year-old, white male who has been healthy and has not seen a doctor in 30 years. He comes into the hospital because of shortness of breath, chest discomfort and progressive edema acute, active 1. Acute systolic Congestive heart failure, present on admission, ongoing, Echo showing EF 30-35%, unclear exact etiology but possibly due to history of EtOH and possible underlying A-fib, refused invasive w/u - f/u daily I/O, will try lasix 20mg po given IMTIAZ, follow CMP, replete K, Mg, consider increase to 20mv iv tomorrow. -follow up with Dr. Pichardo in the clinic upon d/c 2. Acute Atrial fibrillation with rapid ventricular response, present on admission, HR better controlled, SH - 5.98, T4 - 1.03. - Subclinical hypothyroidism, Diltiazem 60 q.8 h discontinued earlier. h/h stable on aspirin. - c/w Metoprolol tartrate 50mg PO Q8H. - ASA 325. - Started Warfarin by previous team but questionable if this is a safe medication for this patient who reportedly is quite active and somewhat prone to falls and accidents. patient himself is refusing further Coumadin to concern about possible bleeding. 3. Macrocytosis, present on admission, Active. - B12 and folate level wnl - Will need follow up with Hematology as outpatient. 4. Possible alcohol abuse, present on admission. - Given Thiamine IV and started on some IV Ativan as needed. - No signs of withdrawal as of yet, - CIWA overnight if necessary. 5. Mildly elevated transaminases, present on admission - Possibly steatohepatitis. - AST greater than ALT, suspect this is secondary to alcoholic liver disease. - Outpatient followup recommended. 6. Urinary retention, present on admission. Active. 7. Left pleural effusion, present on admission. Active. - Ddx: possibly CHF 8. Acute hyponatremia.hypervolemic due to CHF, improved with diuresis, Dispo: likely on next wednesday after finishing diuresis course, home with HH dvt ppx: HSQ Full code diet: heart healthy VTE Prophylaxis: Sub-Q Heparin (Unfractionated) VTE Mechanical Devices: Intermittant Pneumatic CD Resuscitation Status: CPR: Attempt Resuscitation Time spent 35min Everett Cota MD Sep 19, 2016 11:51
[2016-09-19 14:57] VITALS: BP 120/80; PULSE 102; RESP 18; O2SAT 95
--- NOTE | 2016-09-19 18:30 | NUR ---
agitation pt continues to be restless, anxious, "I can't stand just lying around here, I need to get things done", gets a bit SOB with activity, but he is really active. Has not been sleeping much, taking short naps then wide awake. 3-4+ pitting edema
--- NOTE | 2016-09-19 20:57 | NUR ---
PT is up and very active. Does not want to use the front wheel walker. Does not use call light, although instructed to do so when he would like to get out of bed or chair. Andrés switched from Bed to Chair, and PT says he will not get back in bed.
--- NOTE | 2016-09-19 21:00 | NUR ---
Agitation Pt up OOB numerous times. Requesting to hang a note for his son to read at the nurse desk. Given PO ativan for agitation. Currently resting in his chair. Eyes closed. Sitter at bedside.
[2016-09-19 21:17] VITALS: BP 117/79; PULSE 96; RESP 18; O2SAT 97
[2016-09-20] VITALS (10 sets, daily range): BP systolic 108–162; BP diastolic 65–85; PULSE 83–93; RESP 18–20; O2SAT 95–99
[2016-09-20] MEDS: LORazepam 0.5 mg Tablet PO PRN (00:44)
[2016-09-20 06:23] LABS: BASOPHILS % (AUTO) 0.4 % (0-3); EOSINOPHILS % (AUTO) 2.4 % (0-5); MONOCYTES % (AUTO) 24.6 % (4-12); Mean Corpuscular Hemoglobin 37.8 pg (27.0-35.0); Mean Corpuscular Volume 104.7 fL (81-100); Platelet Count 102 bil/L (150-400)
[2016-09-20 06:46] LABS: Magnesium 1.8 mg/dL (1.6-2.6); Phosphorus 3.3 mg/dL (2.5-4.9)
--- NOTE | 2016-09-20 07:03 | NUR ---
Activity Pt up OOB frequently. Impulsive Forgets to use his walker. He has to be reminded to use his walker. Andrés alarm and sitter are being used. Pt is cooperative but forgetful and at times confused. Care ongoing
[2016-09-20] MEDS: Sodium Chloride LOK Flush 10 mL Syringe IVFLUSH SCH ×3 (09:00→23:29)
--- NOTE | 2016-09-20 09:26 | PCM.PNMED ---
Subjective Date of Service Sep 20, 2016 Subjective 76-year-old man with history of alcohol excess presents with symptomatic edema, atrial fibrillation and heart failure. Diagnosis appears to be acute on chronic systolic congestive heart failure. He states that his edema is improved markedly since admission. He has ambulated to a limited extent in the hallways without difficulties. He continues to feel weak. reports that he seems unsteady on his feet and has had falling episodes at home. He has no orthopnea. Exam Vital Signs Vital Sign - Last Date Time Temp Pulse Resp B/P Pulse Ox O2 Delivery O2 Flow Rate FiO2 09/20/16 08:36 36.8 86 20 162/65 96 Room Air Intake and Output 09/19/16 09/19/16 09/20/16 Cumulative From/Thru 15:00 23:00 07:00 09/13/16 07:54 - 09/20/16 06:37 Intake Total 700 ml 61857 ml Output Total 250 ml 200 ml 04426 ml Balance 450 ml -200 ml -1246 ml Intake Oral 700 ml 18939 ml IV Total 469 ml Output Urine Total 250 ml 200 ml 60381 ml # Voids 4 6 34 # Bowel Movements 0 9 Exam General: Generally healthy-appearing elderly man in no acute distress HEENT: sclerae anicteric, oral mucosa moist Neck: no JVD Chest: clear to auscultation, no basilar crackles today Cardiac: S1S2, irregular, no murmur Abdomen: BS normal, non-tender Extremities: 2+ edema; dry 1.5 cm eschar on distal dorsal surface of left foot without erythema or fluctuance Neuro: A&O, cranial nerves symmetric, motor strength 5/5, coordination normal IVs and Medications Medications Reviewed: Medications were reviewed in detail Lab and Diagnostics Result Diagram: 09/20/1646 09/20/1646 X-Rays, CTs and MRIs X-RAY CHEST ONE VIEW, PORTABLE IMPRESSION: 1. Interval increased retrocardiac atelectasis, aspiration, or pneumonia. 2. Persistent small basal left pleural effusion is of uncertain etiology. Dictated by: Geoff Cochran M.D. on 09/14/2016 at 7:19 Cardiac Echo Impressions Interpretation Summary 1) Normal left ventricular thickness and size with moderately reduced systolic function (EF 30-35%). Significant beat to beat variability present in regards to EF assessment. 2) Mildly dilated right ventricle with borderline reduced systolic function. 3) Severe biatrial enlargement present. 4) Moderate tricupid regurgitation present. 5) Pulmonary hypertension present, estimated systolic pulmonary pressure of 42 + CVP 6). Moderate bilateral pleural effusions present. 7) Trivial pericardial effusion present. 8) Atrial fibrillation with ventricular rates in the 87-112 range present during the study. 9) No prior Echo available for comparison. Assessment & Plan 76-year-old, white male who has been healthy and has not seen a doctor in 30 years. He comes into the hospital because of shortness of breath, chest discomfort and progressive edema acute, active 1. Acute systolic Congestive heart failure, present on admission, ongoing, Echo showing EF 30-35%, unclear exact etiology but possibly due to history of EtOH and possible underlying A-fib, refused invasive w/u - We will administer Lasix 40 mg, spironolactone 12.5 mg, and lisinopril 5 mg daily today - Repeat BMP in a.m. - If current regimen that she is a mild net diuresis with stable creatinine and electrolytes then patient may be discharged to home on 09/21/16 - follow up with Dr. Pichardo in the clinic upon d/c 2. Acute Atrial fibrillation with rapid ventricular response, present on admission, HR better controlled, SH - 5.98, T4 - 1.03. - Subclinical hypothyroidism, Diltiazem 60 q.8 h discontinued earlier. h/h stable on aspirin. - The patient has tolerated Metoprolol tartrate 50mg PO Q8H. switch to metoprolol succinate 200 mg daily - target resting heart rate less than 110 bpm - ASA 325. -The patient has been counseled regarding stroke risk by the data processing consultant. The patient endorses a decision not to take active anticoagulant therapy other than aspirin. 3. Macrocytosis, present on admission, Active. - B12 and folate level wnl - Will need follow up with Hematology as outpatient. 4. Possible alcohol abuse, present on admission. - Given Thiamine IV and started on some IV Ativan as needed. - No signs of withdrawal as of yet, - CIWA overnight if necessary. 5. Mildly elevated transaminases, present on admission - Possibly steatohepatitis. - AST greater than ALT, suspect this is secondary to alcoholic liver disease. - Outpatient followup recommended. 6. Urinary retention, present on admission. Active. 7. Left pleural effusion, present on admission. Active. - Ddx: possibly CHF 8. Acute hyponatremia.hypervolemic due to CHF, improved with diuresis, Dispo: likely on next wednesday after finishing diuresis course, home with dvt ppx: HSQ Full code diet: heart healthy VTE Prophylaxis: Sub-Q Heparin (Unfractionated) VTE Mechanical Devices: Intermittant Pneumatic CD Resuscitation Status: CPR: Attempt Resuscitation Time spent 30 minutes Rohan Vance MD Sep 20, 2016 09:26
--- NOTE | 2016-09-20 11:24 | NUR ---
BP BP elevated this morning at 162/65, pt asymptomatic. Tele afib 87 with IVCD and PVCs. MD aware of BP and also of pt's slight increase in daily weight today. Pt given scheduled metoprolol and lasix and MD wrote new orders for lisinopril and spironolactone. BP rechecked prior to administering newly ordered meds and 117/80. Educated pt and on side effects of new medications, meds given as ordered. Will continue to monitor BP. Pt impulsive at times, not agitated so far this morning and has been cooperative with care, updated on plan of care to stay another night to monitor new medications, pt and agreeable at this time. 1:1 sitter at bedside for impulsiveness and safety. Will continue to monitor. Call light in reach, Frequent rounding. Addendum: 09/20/16 at 1808 by MICAELA CHAIDEZ RN BP has been better controlled this afternoon. Pt ambulated in hallway with SBA with sitter and FWW. Care continues.
[2016-09-20] MEDS: Albuterol 2.5 mg/3 mL Inhalation Solution NEB PRN (13:00)
[2016-09-20] MEDS ORDERED: MeTOProlol XL 50 mg ER24 Tablet PO ONE (16:00)
--- NOTE | 2016-09-20 16:19 | NUR ---
Social Work Continued Discharge Planning Data & Assessment: EMR reviewed. Patient is on his seventh day of hospitalization. Patient has a new CHF diagnosis and AFIB with RVR. Pt lives in [place] with spouse and is independent at baseline. Patient was discuss during daily rounds and it is a possibility that he will discharge on 09/21/16 if patient is medically ready. Patient is not yet optimized on his CHF medication. SW will continue to follow and assist patient. Plan: Anticipated discharge home via POV when medically ready with Home Health RN/PT. F2F was signed by provider and received by [facility]. Pt will be transporting pt home when medically ready. SW will continue to follow. Kelle Martinez, JULIAN, ACM
[2016-09-20] MEDS ORDERED: Bacitracin Ointment Packet TOPICAL ONE (16:28)
--- NOTE | 2016-09-20 18:08 | NUR ---
UOP Pt has been voiding small amounts 100,125, and 150 mls at a time, adi urine. Bladder scanned pt this afternoon and 165ml in bladder after voiding 150ml. Pt denies bladder discomfort. MD aware of UOP. Care ongoing.
[2016-09-21] VITALS (7 sets, daily range): BP systolic 100–126; BP diastolic 69–85; PULSE 62–93; RESP 17–20; O2SAT 95–98
--- NOTE | 2016-09-21 04:01 | NUR ---
Mentation Pt has been fully alert and oriented, anxious to go home. Continues to be restless and impulsive, OOB frequently. Pt is observed to be steady on his feet, using FWW appropriately. No sitter needed at this time. Unable to sleep; given Tylenol, walked loop, lights dimmed without significant success. Hourly rounding ongoing.
[2016-09-21] MEDS: Sodium Chloride LOK Flush 10 mL Syringe IVFLUSH SCH ×2 (08:48→17:47)
[2016-09-21] MEDS: MeTOProlol XL 50 mg ER24 Tablet PO SCH (08:49)
--- NOTE | 2016-09-21 15:05 | NUR ---
D/C FROM PT Pt has met goals [facility] to safely amb home environment. Safe to amb halls w/nsg or spouse.
[2016-09-21] MEDS ORDERED: 0.9% Sodium Chloride 1,000 ML IV SCH (16:45)
--- NOTE | 2016-09-21 16:49 | PCM.PNMED ---
Subjective Date of Service Sep 21, 2016 Subjective Pt seen and examined. Patient anxious to go home, however patient seen to have persistent hyponatremia which was never corrected. Exam Vital Signs Vital Sign - Last Date Time Temp Pulse Resp B/P Pulse Ox O2 Delivery O2 Flow Rate FiO2 09/21/16 15:30 36.3 76 17 111/78 95 Room Air Intake and Output 09/20/16 09/20/16 09/21/16 Cumulative From/Thru 15:00 23:00 07:00 09/13/16 07:54 - 09/21/16 06:02 Intake Total 1150 ml 350 ml 39000 ml Output Total 550 ml 200 ml 75268 ml Balance 600 ml 150 ml -496 ml Intake Oral 1150 ml 350 ml 56080 ml IV Total 469 ml Output Urine Total 550 ml 200 ml 85617 ml # Voids 1 4 39 # Bowel Movements 0 9 Exam General: Generally healthy-appearing elderly man in no acute distress HEENT: sclerae anicteric, oral mucosa moist Neck: no JVD Chest: clear to auscultation, no basilar crackles today Cardiac: S1S2, irregular, no murmur Abdomen: BS normal, non-tender Extremities: 2+ edema; dry 1.5 cm eschar on distal dorsal surface of left foot without erythema or fluctuance Neuro: A&O, cranial nerves symmetric, motor strength 5/5, coordination normal IVs and Medications Medications Reviewed: Medications were reviewed in detail Lab and Diagnostics Result Diagram: 09/20/16 0546 09/21/16 1600 X-Rays, CTs and MRIs X-RAY CHEST ONE VIEW, PORTABLE IMPRESSION: 1. Interval increased retrocardiac atelectasis, aspiration, or pneumonia. 2. Persistent small basal left pleural effusion is of uncertain etiology. Dictated by: Geoff Cochran M.D. on 09/14/2016 at 7:19 Cardiac Echo Impressions Interpretation Summary 1) Normal left ventricular thickness and size with moderately reduced systolic function (EF 30-35%). Significant beat to beat variability present in regards to EF assessment. 2) Mildly dilated right ventricle with borderline reduced systolic function. 3) Severe biatrial enlargement present. 4) Moderate tricupid regurgitation present. 5) Pulmonary hypertension present, estimated systolic pulmonary pressure of 42 + CVP 6). Moderate bilateral pleural effusions present. 7) Trivial pericardial effusion present. 8) Atrial fibrillation with ventricular rates in the 87-112 range present during the study. 9) No prior Echo available for comparison. Assessment & Plan 76-year-old, white male who has been healthy and has not seen a doctor in 30 years. He comes into the hospital because of shortness of breath, chest discomfort and progressive edema acute, active 1. Acute systolic Congestive heart failure, present on admission, ongoing, Echo showing EF 30-35%, unclear exact etiology but possibly due to history of EtOH and possible underlying A-fib, refused invasive w/u - We will administer Lasix 40 mg, spironolactone 12.5 mg, and lisinopril 5 mg daily today - Repeat BMP in a.m. - If current regimen that she is a mild net diuresis with stable creatinine and electrolytes then patient may be discharged to home on 09/21/16 - follow up with Dr. Pichardo in the clinic upon d/c 2. Acute Atrial fibrillation with rapid ventricular response, present on admission, HR better controlled, SH - 5.98, T4 - 1.03. - Subclinical hypothyroidism, Diltiazem 60 q.8 h discontinued earlier. h/h stable on aspirin. - The patient has tolerated Metoprolol tartrate 50mg PO Q8H. switch to metoprolol succinate 200 mg daily - target resting heart rate less than 110 bpm - ASA 325. -The patient has been counseled regarding stroke risk by the cardiology nurse. The patient endorses a decision not to take active anticoagulant therapy other than aspirin. 3. Macrocytosis, present on admission, Active. - B12 and folate level wnl - Will need follow up with Hematology as outpatient. 4. Possible alcohol abuse, present on admission. - Given Thiamine IV and started on some IV Ativan as needed. - No signs of withdrawal as of yet, - CIWA overnight if necessary. 5. Mildly elevated transaminases, present on admission - Possibly steatohepatitis. - AST greater than ALT, suspect this is secondary to alcoholic liver disease. - Outpatient followup recommended. 6. Urinary retention, present on admission. Active. 7. Left pleural effusion, present on admission. Active. - Ddx: possibly CHF 8. Acute hyponatremia.hypervolemic due to CHF - persistent hyponatremia - will hold discharge for evaluation and treatment - will infuse 1 liter of ns and start salt tabs Dispo: likely on next wednesday after finishing diuresis course, home with HH dvt ppx: HSQ Full code diet: heart healthy VTE Prophylaxis: Sub-Q Heparin (Unfractionated) VTE Mechanical Devices: Intermittant Pneumatic CD Resuscitation Status: CPR: Attempt Resuscitation Shorty Wellington MD Sep 21, 2016 16:49
--- NOTE | 2016-09-21 18:34 | NUR ---
Activity Patient up ambulating in room and sánchez with FWW. Anxious about going home. Denies pain and nausea this shift. Patient repositioned self for comfort. Call light and tray table within reach. Will continue to monitor patient hourly.
[2016-09-22] MEDS: Sodium Chloride LOK Flush 10 mL Syringe IVFLUSH SCH ×2 (00:30→08:30)
[2016-09-22 01:06] VITALS: BP 120/82; PULSE 80; RESP 18; O2SAT 96
[2016-09-22 06:18] VITALS: BP 117/81; PULSE 89; RESP 20; O2SAT 97
--- NOTE | 2016-09-22 06:32 | NUR ---
[place] Patient has some reluctance to use call light when needing to get up. Patient skinned his right elbow attempting to scoot himself up in bed. Patient was encouraged to use his call light to get the nurses assistance to help boost him if needed. Patient stated he understood, but said he did not want to be a bother. Reassurance was given that it was no bother and to please let the staff know if he needed anything.
[2016-09-22 08:00] VITALS: PULSE 75
[2016-09-22 10:08] VITALS: BP 112/73; PULSE 82; RESP 18; O2SAT 97
[2016-09-22] MEDS: MeTOProlol XL 50 mg ER24 Tablet PO SCH (11:35)
--- NOTE | 2016-09-22 12:10 | PCM.DICHF ---
CHF Discharge Instructions Date of Service: Sep 22, 2016 Dates of Hospitalization Date of Hospital Admission Sep 13, 2016 at 11:31 Date of Discharge: Sep 22, 2016 Providers Admitting Physician: Tom Hurtado DO Primary Care Physician: Terri Attending Physician: Tom Hurtado DO Diagnosis at Time of Discharge Diagnosis at time of discharge atrial fibrillation with chf components Problems: Labs Ejection Fraction Laboratory Tests Test Range/Units 09/13/16 08:49 09/13/16 15:37 09/14/16 02:10 09/14/16 14:50 Thyroid Stimulating Hormone (TSH) 0.450-4.500 uIU/mL 5.980 Vitamin B12 Level 211-946 pg/mL 987 Folate >3.0 ng/mL 19.2 Free Thyroxine 0.82-1.77 ng/dL 1.03 Procalcitonin See Comment ng/mL 0.13 Troponin T 0.0-0.011 ug/L < 0.010 Test Range/Units 09/16/16 05:38 09/20/16 05:46 09/22/16 07:35 Pro-B-Type Natriuretic Peptide 0-486 pg/mL 1739 Phosphorus Level 2.5-4.9 mg/dL 3.3 Magnesium Level 1.6-2.6 mg/dL 1.8 Total Bilirubin 0.0-1.2 mg/dL 1.2 Aspartate Amino Transf (AST/SGOT) 0-50 U/L 40 Alanine Aminotransferase (ALT/SGPT) 0-44 U/L 40 Alkaline Phosphatase 25-160 U/L 117 Total Protein 6.4-8.4 g/dL 5.6 Albumin 3.4-5.0 g/dL 2.7 Sodium Level 134-144 mEq/L 124 Potassium Level 3.5-5.2 mEq/L 3.9 Chloride Level 97-108 mEq/L 83 Carbon Dioxide Level 18-29 mmol/L 29 Blood Urea Nitrogen 8-27 mg/dL 17 Creatinine 0.76-1.27 mg/dL 0.56 Estimat Glomerular Filtration Rate >59 mL/min 151 Glucose Level 60-99 mg/dL 100 Calcium Level 8.5-10.1 mg/dL 8.1 Discharge Medications Other Medication Instructions You have received instructions on the medications your physician has prescribed at discharge. A list of these medications has been provided to you. Keep this and a list of all current medications with you. Keep the dates when you received the Flu and Pneumococcal (Pneumonia) Vaccines. Last known date of receiving Flu Vaccine declines Last known date of receiving Pneumococcal (Pneumonia) Vaccine Diet CHF Discharge Diet: Fluid restriction Diet Instructions As of now, the only restriction you have is to not consume more than a liter of fluid a day. Read Nutritional Facts labels. Activity CHF Discharge Activity: No restrictions Weight Monitoring 1. Weigh yourself every day at the same time and write it down. 2. Take your weight log to your doctor visits. 3. Call your doctor if you gain 3-5 pounds over 2-3 days. 4. Your weight today is 176.37 lbs. Additional Instructions Smoking--Tobacco Use If you smoke, you are strongly encouraged to stop. If you have recently quit smoking, CONGRATULATIONS. For further information to stop smoking or to remain smoke-free, Follow Up Plan Follow Up Plan You will need to follow up with your pmd within 1 week. Additionally like I explained to your family and you, you will need to obtain a Basic metabolic panel during this week to assess at what level your sodium is. Once you are able to obtain a result please call your primary care doctor with the value and that will determine follow up. Report or call your Doctor REPORT TO YOUR DOCTOR OR SEEK MEDICAL ATTENTION: *Shortness of breath or have more difficulty breathing. *Swelling of your feet, ankles, hands or abdomen. *Feeling tired with normal activity or experiencing dizziness or fainting. *Trouble sleeping or waking up feeling short of breath or coughing. *Chest pain or pressure. *Weight gain of 3-5 pounds over 2-3 days. *Inability to take medications or follow treatment plan Heart Attach warning signs HEART ATTACK WARNING SIGNS * Chest discomfort. *Discomfort or pain in one or both arms, back, neck, jaw or stomach. *Shortness of breath. *Breaking out in a cold sweat, nausea, or lightheadedness. If you're having heart attack warning signs: CALL . DON'T WAIT MORE THAN A FEW MINUTES - 5 MINUTES AT MOST - TO CALL . Shorty Wellington MD Sep 22, 2016 12:10
[2016-09-22] MEDS ORDERED: ASPI81TA3 PO (12:14)
[2016-09-22] MEDS ORDERED: LISI-571 PO (12:14)
[2016-09-22] MEDS ORDERED: SODI1TAB2 PO (12:14)
[2016-09-22] MEDS ORDERED: METO-272 PO (12:14)
[2016-09-22] MEDS ORDERED: ALBU2.5V4 NEB (12:14)
[2016-09-22] MEDS ORDERED: FURO40TA4 PO (12:14)
[2016-09-22] MEDS ORDERED: SPIR25TA PO (12:14)
--- NOTE | 2016-09-22 14:35 | NUR ---
Social Work Discharge D: EMR Reviewed. Pt is on day 9 of hospitalization. Pt is medically stable and discharging home via POV with to drive. Pt to open with [facility] RN/PT within 48hrs. ARTI provided update to Yvon from [facility] that Pt is discharging. Pt's has obtained a walker. Pt listed as no PCP but reported to be established at [facility]. A: Pt who is independent at baseline P: Pt is medically stable and discharging home via POV with to drive. Pt to open with [facility] RN/PT within 48hrs. ARTI provided update to Yvon from [facility] that Pt is discharging. Pt's has obtained a walker. Pt listed as no PCP but reported to be established at [facility]. UNIQUE Sanchez
--- NOTE | 2016-09-22 14:40 | NUR ---
Discharge Patient discharged home. IV DC'd and intact. Discharge instructions given with no questions. Patient and patient's informed to have BMP drawn by this Wednesday. Lab slip sent with patient. RX faxed and original given to patient. RN attempted to fax RX to [facility] and fax failed x2. notified of fax not being sent. All belongings sent with patient. [employer] SALES REPRESENTATIVE escorted patient out via W/C.
--- NOTE | 2016-11-05 15:25 | PCM.DC.MED ---
Discharge Summary Date of Service Nov 05, 2016 Dates of Hospitalization Date of Hospital Admission Sep 13, 2016 at 11:31 Date of Discharge: Sep 22, 2016 Providers: Admitting Physician: Tom Hurtado DO Primary Care Physician: Elizabeth Oropeza MD Attending Physician: Tom Hurtado DO Diagnosis at Time of Discharge Diagnosis at Time of Discharge atrial fibrillation with chf components Procedures XRay, CTs & MRIs X-RAY CHEST ONE VIEW, PORTABLE IMPRESSION: 1. Interval increased retrocardiac atelectasis, aspiration, or pneumonia. 2. Persistent small basal left pleural effusion is of uncertain etiology. Dictated by: Goeff Cochran M.D. on 09/14/2016 at 7:19 Cardiac Echo Impression Interpretation Summary 1) Normal left ventricular thickness and size with moderately reduced systolic function (EF 30-35%). Significant beat to beat variability present in regards to EF assessment. 2) Mildly dilated right ventricle with borderline reduced systolic function. 3) Severe biatrial enlargement present. 4) Moderate tricupid regurgitation present. 5) Pulmonary hypertension present, estimated systolic pulmonary pressure of 42 + CVP 6). Moderate bilateral pleural effusions present. 7) Trivial pericardial effusion present. 8) Atrial fibrillation with ventricular rates in the 87-112 range present during the study. 9) No prior Echo available for comparison. Hospital Course 76-year-old, white male who has been healthy and has not seen a doctor in 30 years. He comes into the hospital because of shortness of breath, chest discomfort and progressive edema acute, active 1. Acute systolic Congestive heart failure, present on admission, ongoing, Echo showing EF 30-35%, unclear exact etiology but possibly due to history of EtOH and possible underlying A-fib, refused invasive w/u - We will continue with Lasix 40 mg, spironolactone 12.5 mg, and lisinopril 5 mg daily today - Repeat BMP in a.m. - follow up with Dr. Pichardo in the clinic upon d/c 2. Acute Atrial fibrillation with rapid ventricular response, present on admission, HR better controlled, SH - 5.98, T4 - 1.03. - Subclinical hypothyroidism, Diltiazem 60 q.8 h discontinued earlier. h/h stable on aspirin. - The patient has tolerated Metoprolol tartrate 50mg PO Q8H. switch to metoprolol succinate 200 mg daily - target resting heart rate less than 110 bpm - ASA 325. -The patient has been counseled regarding stroke risk by the quality improvement consultant. The patient endorses a decision not to take active anticoagulant therapy other than aspirin. 3. Macrocytosis, present on admission, Active. - B12 and folate level wnl - follow up with pmd as an out patient and obtain hematology referral if persistent anemia 4. Possible alcohol abuse, present on admission. - Given Thiamine IV and started on some IV Ativan as needed. 5. Mildly elevated transaminases, present on admission - Possibly steatohepatitis. - AST greater than ALT, suspect this is secondary to alcoholic liver disease. - Outpatient followup recommended. 6. Urinary retention, present on admission. Active. 7. Left pleural effusion, present on admission. Active. - Ddx: possibly CHF 8. Acute hyponatremia.hypervolemic due to CHF - persistent hyponatremia -Currently improved -will need out patient blood work which is arranged Dispo:home with Exam Test 09/13/16 08:49 09/13/16 10:30 09/13/16 13:34 09/13/16 15:37 Thyroid Stimulating Hormone (TSH) 5.980uIU/mL (0.450-4.500) Hold Urine Received (Received) Urine Color Straw (YELLOW) Urine Appearance Clear (CLEAR,HAZY) Urine pH 5.5 (5.0-8.0) Urine Specific [place] 1.015 (1.003-1.035) Urine Protein Negativemg/dL (NEG,TRACE) Urine Glucose (UA) Negativemg/dL (NEGATIVE) Urine Ketones Negativemg/dL (NEGATIVE) Urine Occult Blood Trace (NEGATIVE) Urine Nitrite Negative (NEGATIVE) Urine Bilirubin Negative (NEGATIVE) Urine Urobilinogen Normalmg/dL (NORMAL) Urine Leukocyte Esterase Trace (NEGATIVE) Urine RBC 0-2/hpf (0-2) Urine WBC 0-5/hpf (0-5) Urine Epithelial Cells None/hpf (NONE-MOD) Urine Crystals Amorphous urates (NONE Urine Bacteria Few/hpf (NONE-FEW) Urine Hyaline Casts None/lpf (NONE) Urine Granular Casts None seen (NONE SEEN) Urine Waxy Casts None seen (NONE SEEN) Urine Red Blood Cell Casts None seen (NONE SEEN) Urine White Blood Cell Casts None seen (NONE SEEN) Urine Mucus Present (None Seen) Urine Trichomonas None seen (NONE SEEN) Urine Yeast None (NONE SEEN) Urinalysis Comment None Urine Culture Reflexed Indicated Activated Partial Thromboplast Time 70.6sec (22.8-33.0) Vitamin B12 Level 987pg/mL (211-946) Folate 19.2ng/mL (>3.0) Free Thyroxine 1.03ng/dL (0.82-1.77) Test 09/13/16 23:00 09/14/16 02:10 09/14/16 14:50 09/16/16 05:38 Hepatitis A IgM Antibody Negative (Negative) Hepatitis B Surface Antigen Negative (Negative) Hepatitis B Core IgM Antibody Negative (Negative) Hepatitis C Antibody <0.1s/co ratio (0.0-0.9) Hepatitis C Comment Comment (.) Procalcitonin 0.13ng/mL (See Comment) Troponin T < 0.010ug/L (0.0-0.011) Pro-B-Type Natriuretic Peptide 1739pg/mL (0-486) Test 09/18/16 06:03 09/20/16 05:46 09/22/16 07:35 Prothrombin Time 13.2sec (8.1-12.5) Prothromb Time International Ratio 1.23ratio White Blood Count 4.6th/mm3 (3.8-10.1) Red Blood Count 3.44mil/mm3 (4.40-5.80) Hemoglobin 13.0g/dL (13.8-17.2) Hematocrit 36.0% (41.0-50.0) Mean Corpuscular Volume 104.7fL (81-100) Mean Corpuscular Hemoglobin 37.8pg (27.0-35.0) Mean Corpuscular Hemoglobin Concent 36.1% (32.0-37.0) Red Cell Distribution Width 11.8% (12.3-15.4) Platelet Count 102bil/L (150-400) Neutrophils (%) (Auto) 50.0% (40-74) Lymphocytes (%) (Auto) 22.2% (14-46) Monocytes (%) (Auto) 24.6% (4-12) Eosinophils (%) (Auto) 2.4% (0-5) Basophils (%) (Auto) 0.4% (0-3) Phosphorus Level 3.3mg/dL (2.5-4.9) Magnesium Level 1.8mg/dL (1.6-2.6) Total Bilirubin 1.2mg/dL (0.0-1.2) Aspartate Amino Transf (AST/SGOT) 40U/L (0-50) Alanine Aminotransferase (ALT/SGPT) 40U/L (0-44) Alkaline Phosphatase 117U/L (25-160) Total Protein 5.6g/dL (6.4-8.4) Albumin 2.7g/dL (3.4-5.0) Sodium Level 124mEq/L (134-144) Potassium Level 3.9mEq/L (3.5-5.2) Chloride Level 83mEq/L (97-108) Carbon Dioxide Level 29mmol/L (18-29) Blood Urea Nitrogen 17mg/dL (8-27) Creatinine 0.56mg/dL (0.76-1.27) Estimat Glomerular Filtration Rate 151mL/min (>59) Glucose Level 100mg/dL (60-99) Calcium Level 8.1mg/dL (8.5-10.1) Discharge Medications Discharge Medications Aspirin Chew (Aspirin Chew) 81 Mg Chew 324 MG PO DAILY Prescribed by: SHORTY WELLINGTON MD Furosemide (Furosemide) 40 Mg Tablet 40 MG PO DAILY Prescribed by: SHORTY WELLINGTON MD Lisinopril (Lisinopril) 5 Mg Tablet 5 MG PO DAILY Prescribed by: SHORTY WELLINGTON MD Metoprolol Succinate ER (Metoprolol Succinate ER) 50 Mg Tab.er.24h 200 MG PO DAILY Prescribed by: SHORTY WELLINGTON MD Mv-Mn/FA/Vit K/Lycop/Lut/Coq10 (Daily Multivitamin Capsule) 200-100MCG Capsule 1 EACH PO DAILY (Reported) Sodium Chloride (Sodium Chloride) 1 Gm Tablet 1 GM PO DAILY Prescribed by: SHORTY WELLINGTON MD Spironolactone (Aldactone) 25 Mg Tablet 12.5 MG PO DAILY Prescribed by: SHORTY WELLINGTON MD As needed Albuterol Neb Soln (Albuterol Neb Soln) 2.5 Mg/3 Ml Vial.neb 2.5 MG NEB Q6H PRN PRN For Shortness of Breath Prescribed by: SHORTY WELLINGTON MD Ibuprofen (Ibuprofen) 200 Mg Capsule 200 MG PO QID PRN PRN For Pain (Reported) Followup Plan Follow-up plan You will need to follow up with your pmd within 1 week. Additionally like I explained to your family and you, you will need to obtain a Basic metabolic panel during this week to assess at what level your sodium is. Once you are able to obtain a result please call your primary care doctor with the value and that will determine follow up. Follow-up with PCP in: 1 week (obtain bmp as an out patient ) Shorty Wellington MD Nov 05, 2016 15:25
== END 2016-09-22 14:55 | disposition home health service (06) | DRG 292 ==
LOC: SED 07:45 → OSC 10:39 → UNDOADMOB 10:39 → OFED 11:31 → PCC 13:28 → OSC 09-15 23:49
PROVIDERS: ADMIT Family Medicine; ATTEND Family Medicine
DX: I50.21 Acute systolic (congestive) heart failure (principal); E87.1 Hypo-osmolality and hyponatremia; F10.188 Alcohol abuse with other alcohol-induced disorder; I48.91 Unspecified atrial fibrillation; K70.9 Alcoholic liver disease, unspecified; K75.81 Nonalcoholic steatohepatitis (NASH); R33.9 Retention of urine, unspecified